=== PATIENT | female | born 1950 | race Caucasian/White ===

== ENCOUNTER 2022-04-27 13:16 | Inpatient (IN) | payer MEDICARE, OTHER, SELFPAY ==
[2022-04-27] VITALS (22 sets, daily range): BP systolic 94–144; BP diastolic 56–96; PULSE 34–161; RESP 14–24; TEMP 36.2–36.9; O2SAT 91–100; BMI 38.0
--- NOTE | 2022-04-27 13:34 | ECG_ITS ---
[facility] Test Date: 2022-04-27 Pat Name: Sanam Smith Department: Room: Gender: Female Technical Support Manager: : 1950 Requested By: Adebayo Sebastian Order Number: [id number] Joshua MD: Bentley Gonzales M.D. Measurements Intervals [place] Rate: 171 P: [place]: QRS: 62 QRSD: 95 T: -78 QT: 253 QTc: 427 Interpretive Statements ATRIAL FIBRILLATION WITH RAPID VENTRICULAR RESPONSE POSSIBLE RIGHT VENTRICULAR CONDUCTION DELAY [RSR (QR) IN V1/V2] ST DEVIATION AND MODERATE T-WAVE ABNORMALITY, CONSIDER LATERAL ISCHEMIA [-0.1+ mV T-WAVE IN I/aVL/V5/V6] ST DEVIATION AND MODERATE T-WAVE ABNORMALITY, CONSIDER INFERIOR ISCHEMIA [-0.1+ mV T-WAVE IN II/aVF] CRITICAL TEST RESULT No previous ECG available for comparison Electronically Signed On 04-27-2022 21:13:39 CDT by Bentley Gonzales M.D. [id number]
--- NOTE | 2022-04-27 13:45 | ECG_ITS ---
[facility] Test Date: 2022-04-27 Pat Name: Sanam Smith Department: Room: Gender: Female Stack Clerk: : 1950 Requested By: Tato Klein Order Number: [id number] Joshua MD: Bentley Gonzales M.D. Measurements Intervals [place] Rate: 160 P: [place]: QRS: 68 QRSD: 97 T: -35 QT: 262 QTc: 427 Interpretive Statements ATRIAL FIBRILLATION WITH RAPID VENTRICULAR RESPONSE POSSIBLE RIGHT VENTRICULAR CONDUCTION DELAY [RSR (QR) IN V1/V2] NONSPECIFIC ST & T-WAVE ABNORMALITY CRITICAL TEST RESULT Compared to ECG 04/27/2022 13:34:29 Possible ischemia no longer present T-wave abnormality still present Electronically Signed On 04-27-2022 21:13:46 CDT by Bentley Gonzales M.D. [id number]
[2022-04-27] MEDS: esmolol drip 2,500 MG/250 ML PREMIX 17.55 MG IV (13:59)
[2022-04-27 14:18] LABS: Basophils % 0.6 %; Eosinophils # 0.1 10^3/uL (0.0-0.8); Eosinophils % 1.3 %; Hematocrit 48.2 % (37.0-47.0); Hemoglobin 15.2 g/dL (11.5-15.3); Lymphocytes # 1.7 10^3/uL (0.8-4.8); Lymphocytes % 32.4 %; Mean Corpuscular HGB Conc 31.5 g/dL (30.0-36.0); Mean Corpuscular Hemoglobin 26.4 pg (28.0-34.0); Mean Corpuscular Volume 83.7 fl (81-99); Mean Platelet Volume 10.2 fL (7.4-10.4); Monocytes # 0.6 10^3/uL (0.2-0.9); Monocytes % 11.3 %; Neutrophils # 2.83 10^3/uL (1.8-7.7); Neutrophils % 54.2 %; Nucleated Red Blood Cells % 0 %; Platelet Count 247 10^3/cmm (130-400); Red Blood Count 5.76 10^6/uL (4.1-5.3); Red Cell Distribution Width 14.4 % (12.1-15.1); White Blood Count 5.2 10^3/uL (4.0-10.0)
[2022-04-27 14:44] LABS: Troponin(5th) Baseline 13 ng/L (0-10)
[2022-04-27 14:52] LABS: Anion Gap 15.3 (5-19); Blood Urea Nitrogen 9 mg/dL (8-23); Calcium 9.6 mg/dL (8.5-10.5); Carbon Dioxide 28 mmol/L (22-29); Chloride 102 mmol/L (98-107); Glomerular Filtration Rate 62.1 mL/min (90-130); Glucose 95 mg/dL (65-115); Magnesium 1.9 mg/dL (1.7-2.3); Osmolality Calculated 290 mOsm/kg (285-295); Potassium 4.3 mmol/L (3.5-5.1); Sodium 141 mmol/L (136-145); Thyroid Stimulating Hormone 2.57 uIU/mL (0.27-4.20)
--- NOTE | 2022-04-27 15:24 | P.HP_ITS ---
Providers/Chief Complaint Primary Care Provider: Jd Boothe Chief Complaint: Irregular heartbeat History of Present Illness Sanam Smith is a 71 year old female who presented to hospital chief complaint of skipping heartbeat. Patient is stating that 20 years ago she had an angiogram when she was diagnosed with palpitations. She does not take any medications at home. She has been enjoying a healthy life. Today she presented because of her complaint of skipping heartbeat. I did try to clarify what she means with skipping heartbeat seem like she has been having palpitations which she describing as skipping of her heartbeat. She has not experienced any shortness of breath, chest pain however endorsing fatigue and lethargy and lack of energy. No recent COVID-19 related symptoms. No recent traveling. She does not carry history of CHF, [place], diabetes. In the ER she was diagnosed with A. fib RVR heart rate in 145 range, he was started on esmolol drip while I was interviewing her her rhythm converted to sinus and heart rate dropped to low 30s, I turned off her drip right away, I would like to watch her on telemetry of any AV diallo blocking agent, her [id number] is only 2 Patient does not want to try any anticoagulating agent Medications/Allergies Home Medications Medication Instructions Recorded Confirmed Last Taken Type ascorbic acid 1,000 1 ea PO DAILY 04/27/22 04/27/22 Unknown History [id number] powder effervescent pack (Emergen-C) cholecalciferol (vitamin D3) 25 25 mcg PO DAILY PRN UNKNOWN 04/27/22 04/27/22 Unknown History mcg (1,000 unit) tablet (Vitamin D3) elderberry fruit 200 mg capsule 200 mg PO DAILY PRN UNKNOWN 04/27/22 04/27/22 Unknown History garlic 1 tab PO DAILY PRN UNKNOWN 04/27/22 04/27/22 Unknown History oxazepam 15 mg capsule 15 mg PO DAILY PRN Anxiety 04/27/22 04/27/22 04/26/22 History zinc 50 mg tablet 50 mg PO DAILY PRN UNKNOWN 04/27/22 04/27/22 Unknown History Allergies Allergy/AdvReac Type Severity Reaction Status Date / Time loratadine [From Claritin] Allergy Unknown Verified 04/27/22 14:44 pseudoephedrine Allergy ADR-Numbnes Verified 04/27/22 14:44 [From Mat] s ALL ALLERGY MEDS Allergy Unknown Uncoded 04/27/22 14:44 PFSH Acute PFSH: Medical History (Updated 04/27/22 @ 16:32 by Pancho Redd MD) No pertinent past medical history Surgical History (Updated 04/27/22 @ 16:32 by Pancho Redd MD) No pertinent past surgical history Vitals/I&O/Wt Last Vital Signs Temp 98.4 F 04/27/22 13:26 Pulse 145 H 04/27/22 13:26 Resp 20 H 04/27/22 13:26 Pulse Ox 97 04/27/22 13:26 O2 Del Method 04/27/22 13:26 Weight last 48 hrs Weight 97.522 kg Physical Exam Narrative: Very pleasant cooperative Sinus rhythm Heart rate fluctuate between 40 to 50s Sinus rhythm No active chest pain S1, S2 No audible stridor or wheezing Abdomen soft Looks euvolemic Nonfocal neuro exam Family is at the bedside Data : 04/27/22 14:06 04/27/22 14:06 A&P Assessment and plan (1) Atrial fibrillation with RVR: Status: Acute Plan New onset A. fib RVR She is on esmolol drip Rhythm converted to sinus now she is in bradycardic range, hold AV diallo blocking agent, esmolol drip has been turned off by myself in the ER Bharat Vascor is only 2 she did not qualify for anticoagulating agent, Check TSH Check magnesium level Cardiac monitoring on telemetry Will request echo Check magnesium level Check D-dimer Full code Cardiac diet DVT prophylaxis sufficed with Lovenox Attestations Medical Necessity Statement*: Currently on esmolol drip anticipating less than than 2 midnights in the hospital for management of new onset A. fib RVR Time Spent in Patient Care: 40 Coding Level of Care Code Acute Assistant Director Of Residence Life for Kenyatta Fwd Diagnoses Atrial fibrillation with RVR I48.91
--- NOTE | 2022-04-27 15:29 | ED_ITS ---
HPI - Chest Pain General: Chief Complaint: Chest Pain Stated Complaint: Irregular heartbeat Time Seen by Provider: 04/27/22 13:45 Source: patient Mode of arrival: ambulatory Limitations: no limitations History of Present Illness: 71-year-old female history of coronary disease presents emergency room with complaints of heart racing and palpitations. She has had this evidently for the last several days she presented to local primary care clinic and she was referred over to the ER where they noted her heart rate was in the 150s and irregular. She states she has no known history of atrial fibrillation she is not on any anticoagulants. She is not on any medications to lower heart rate. Her only prescription medication at this time is oxazepam. She denies any chest pain at this time. MD complaint: other (Palpitations) Onset (ago): day(s) (2) Timing of current episode: episodic Pain radiation: none Relieving factors: rest Exacerbating factors: movement (Going from sitting to standing) Associated symptoms: Reports palpitations; Deny abdominal pain, diaphoresis, dyspnea, fever(s), leg edema, nausea, sense of impending doom, syncope or vomiting Treatment prior to arrival: none Review of Systems Const: Denies: fever(s), chills, fatigue, malaise or diaphoresis ENMT: Denies: throat pain, ear or mastoid pain, nasal discharge or nasal congestion Card: Reports: palpitations; Denies: chest pain or syncope Resp: Denies: dyspnea GI: Denies: abdominal pain, nausea or vomiting : Denies: flank pain, difficulty voiding, dysuria, urinary frequency or urinary urgency Musc: Denies: neck pain or back pain Skin/Breast: Denies: rash or pruritus PFSH ED PFSH: Medical History Anxiety Atrial fibrillation with RVR No pertinent past medical history Tachycardia-bradycardia syndrome Surgical History No pertinent past surgical history Physical Exam Const: COMMON NORMALS: no acute distress GENERAL APPEARANCE: cooperative and comfortable ORIENTATION/CONSCIOUSNESS: Yes awake, Yes oriented to person, Yes oriented to place and Yes oriented to time HENMT: COMMON NORMALS: normocephalic, atraumatic and hearing grossly normal bilaterally HEAD & SCALP: normocephalic and atraumatic Resp: COMMON NORMALS: normal respiratory effort, No retractions, No use of accessory muscles and clear to auscultation bilaterally AUSCULTATION: clear to auscultation bilaterally Cardio: RATE: tachycardic RHYTHM: abnormal rhythm irregularly irregular GI: COMMON NORMALS: Soft to palpation and No hepatosplenomegaly present AUSCULTATION: Yes normoactive bowel sounds PALPATION: Yes Soft to palpation, No Tenderness to palpation present (GI), No Guarding due to palpation present (GI) and Yes No hepatosplenomegaly present Extremity: COMMON NORMALS: normal to inspection, capillary refill normal, no clubbing, cyanosis or edema, no calf tenderness and no pedal edema Neuro: SENSORIUM/ORIENTATION: Yes oriented to person, Yes oriented to place an d Yes oriented to time Skin: COMMON NORMALS: no rashes or lesions noted GENERAL SKIN EXAM: no rashes or lesions noted Course Vital Signs: Vital signs: Vital Signs Temperature 97.6 F 05/02/22 12:44 Pulse Rate 72 05/02/22 12:45 Respiratory Rate 14 05/02/22 12:45 Blood Pressure 120/74 05/02/22 13:00 Pulse Oximetry 98 05/02/22 12:45 Oxygen Delivery Me thod 05/02/22 08:30 Oxygen Flow Rate 2 04/30/22 13:25 MDM - Chest Pain Medical Decision Making A. fib with RVR. Patient started on esmolol and then she converted. When the hospitalist came to see her the esmolol drip was stopped. We will go ahead and admit her she became bradycardic they will continue to monitor for time make adjustments to medications and consider anticoagulation. Medical Records I reviewed the patient's medical records. Lab Data I reviewed the patient's lab results. : 05/01/22 05:00 05/01/22 05:00 Laboratory Results WBC 7.1 10^3/uL (4.0-10.0) 04/28/22 03:07 RBC 5.20 10^6/uL (4.1-5.3) 04/28/22 03:07 Hgb 13.8 g/dL (11.5-15.3) 04/28/22 03:07 Hct 43.7 % (37.0-47.0) 04/28/22 03:07 MCV 84.0 fl (81-99) 04/28/22 03:07 MCH 26.5 pg (28.0-34.0) L 04/28/22 03:07 MCHC 31.6 g/dL (30.0-36.0) 04/28/22 03:07 RDW 14.5 % (12.1-15.1) 04/28/22 03:07 Plt Count 259 10^3/cmm (130-400) 04/28/22 03:07 MPV 10.9 fL (7.4-10.4) H 04/28/22 03:07 Neut % (Auto) 62.4 % 04/28/22 03:07 Lymph % (Auto) 23.1 % 04/28/22 03:07 Richardson % (Auto) 12.1 % 04/28/22 03:07 Eos % (Auto) 1.8 % 04/28/22 03:07 Baso % (Auto) 0.3 % 04/28/22 03:07 Neut # (Auto) 4.45 10^3/uL (1.8-7.7) 04/28/22 03:07 Lymph # (Auto) 1.7 10^3/uL (0.8-4.8) 04/28/22 03:07 Richardson # (Auto) 0.9 10^3/uL (0.2-0.9) 04/28/22 03:07 Eos # (Auto) 0.1 10^3/uL (0.0-0.8) 04/28/22 03:07 Baso # (Auto) 0.0 10^3/uL (0.0-0.1) 04/28/22 03:07 Nucleated RBC % (auto) 0 % 04/28/22 03:07 Nucleated RBCs # 0.0 /100WBC 04/28/22 03:07 D-Dimer 0.66 ug/mIFEU (0-0.59) H 04/27/22 15:27 Sodium 138 mmol/L (136-145) 04/28/22 03:07 Potassium 4.1 mmol/L (3.5-5.1) 04/28/22 03:07 Chloride 105 mmol/L (98-107) 04/28/22 03:07 Carbon Dioxide 24 mmol/L (22-29) 04/28/22 03:07 Anion Gap 13.1 (5-19) 04/28/22 03:07 BUN 10 mg/dL (8-23) 04/28/22 03:07 Creatinine 0.8 mg/dL (0.5-0.9) 04/28/22 03:07 GFR Calculation 71.1 mL/min (90-130) L 04/28/22 03:07 Glucose 100 mg/dL (65-115) 04/28/22 03:07 Estimat Average Glucose 117 04/27/22 14:06 Hemoglobin A1c 5.7 % (4.0-6.0) 04/27/22 14:06 Calculated Osmolality 285 mOsm/kg (285-295) 04/28/22 03:07 Calcium 8.6 mg/dL (8.5-10.5) 04/28/22 03:07 Phosphorus 4.0 mg/dL (2.5-4.5) 04/28/22 03:07 Phosphorus Cancelled 04/28/22 03:07 Magnesium 2.1 mg/dL (1.7-2.3) 04/28/22 03:07 Magnesium Cancelled 04/28/22 03:07 Troponin T Baseline 13 ng/L (0-10) H 04/27/22 14:06 Troponin T 120 Minute 10.38 ng/L (0-10) H 04/27/22 16:42 Delta Troponin T -2.62 ABS# (0-10) L 04/27/22 16:42 Troponin T Hi Sens 6Hr 10.55 ng/L (0-10) H 04/27/22 20:44 Troponin T Hi Sens 6Hr Delta -2.45 ng/L (0-12) L 04/27/22 20:44 C-Reactive Protein 3.0 mg/L (0.0-4.9) 04/28/22 03:07 C-Reactive Protein Cancelled 04/28/22 03:07 TSH 2.57 uIU/mL (0.27-4.20) 04/27/22 14:06 Discharge Plan Discharge Patient Disposition: Admitted As Inpatient Admit Provider: Pancho Redd Clinical Impression: Atrial fibrillation with rapid ventricular response Condition: Stable Discharge Diet: Cardiac Discharge Activity: Increase activity as tolerated Coding Level of Care Code ED Water Meter Mechanic for Chg Fwd
[2022-04-27 15:43] LABS: D Dimer 0.66 ug/mIFEU (0-0.59)
--- NOTE | 2022-04-27 15:45 | ECG_ITS ---
[facility] Test Date: 2022-04-27 Pat Name: Sanam Smith Department: Room: Gender: Female Food And Beverage Outlets Manager: : 1950 Requested By: Tato Klein Order Number: [id number] Joshua MD: Bentley Gonzales M.D. Measurements Intervals [place] Rate: 62 P: 53 [place]: 128 QRS: 69 QRSD: 94 T: 42 QT: 426 QTc: 434 Interpretive Statements SINUS RHYTHM WITH MARKED SINUS ARRHYTHMIA LOW QRS VOLTAGE IN PRECORDIAL LEADS [QRS DEFLECTION < 1.0 mV IN CHEST LEADS] POSSIBLE RIGHT VENTRICULAR CONDUCTION DELAY [RSR (QR) IN V1/V2] Compared to ECG 04/27/2022 14:08:27 Low QRS voltage now present Atrial fibrillation no longer present T-wave abnormality no longer present Electronically Signed On 04-28-2022 6:46:54 CDT by Bentley Gonzales M.D. [id number]
[2022-04-27 17:14] LABS: Troponin 5 2HR 10.38 ng/L (0-10)
[2022-04-27 17:16] LABS: Troponin 5 2HR Delta -2.62 ABS# (0-10)
[2022-04-27 17:32] LABS: Estmated Average Glucose 117; Hemoglobin A1C 5.7 % (4.0-6.0)
--- NOTE | 2022-04-27 18:08 | PC.NURSE ---
Admitted to ICU at 1730 via bed on room air. A&Ox4. Pt's heart rate was in the 40's and esmolol drip was shut off. All belongings in room including ring, glasses, shoes, shirt and pants.
--- NOTE | 2022-04-27 18:45 | PC.NURSE ---
This nurse was notified that pt was in afib with a HR in 150's. EKG already done. Dr. Redd was notified and placed new orders.
--- NOTE | 2022-04-27 19:45 | ECG_ITS ---
[facility] Test Date: 2022-04-27 Pat Name: Sanam Smith Department: Room: [facility] Gender: Female Creel Selector: : 1950 Requested By: Tato Klein Order Number: [id number] Lewis MD: Saumya Riley M.D. Measurements Intervals [place] Rate: 128 P: [place]: QRS: 54 QRSD: 101 T: -84 QT: 304 QTc: 444 Interpretive Statements ATRIAL FIBRILLATION WITH RAPID VENTRICULAR RESPONSE INCOMPLETE RIGHT BUNDLE BRANCH BLOCK [90+ ms QRS DURATION, TERMINAL R IN V1/V2, 40+ ms S IN I/aVL/V4/V5/V6] NONSPECIFIC ST & T-WAVE ABNORMALITY Compared to ECG 04/27/2022 15:57:34 Incomplete right bundle-branch block now present T-wave abnormality now present Sinus rhythm no longer present Sinus arrhythmia no longer present Electronically Signed On 04-28-2022 19:51:45 CDT by Saumya Riley M.D. [id number]
[2022-04-27] MEDS: metoprolol tartrate 25 mg Tablet PO (20:46)
[2022-04-27 21:39] LABS: Troponin 5 6HR 10.55 ng/L (0-10); Troponin 5 6HR Delta -2.45 ng/L (0-12)
--- NOTE | 2022-04-27 22:41 | PC.NURSE ---
Pt had an approximately 3.8 second pause at 2205. She converted into sinus bradycardia with PAC's. Pt was asymptomatic with pause, stating, I feel really different.
[2022-04-28] VITALS (137 sets, daily range): BP systolic 88–140; BP diastolic 55–93; PULSE 34–152; RESP 9–28; TEMP 36.4–36.6; O2SAT 94–100
[2022-04-28] MEDS: metoprolol tartrate 1 mg/1 mL SDV 5 mL 5 MG IVP (01:24)
[2022-04-28] MEDS: ALPRAZolam 0.5 mg Tablet PO (01:38)
--- NOTE | 2022-04-28 02:06 | PC.NURSE ---
Pt continues to complain of anxiety, but is cheerful and laughing. is at bedside reading to her.
--- NOTE | 2022-04-28 02:57 | PC.NURSE ---
Pt resting quietly in bed with eyes closed. Respirations are even and unlabored. Skin is pink and dry. Pt's at bedside.
[2022-04-28 04:10] LABS: Basophils % 0.3 %; Eosinophils # 0.1 10^3/uL (0.0-0.8); Eosinophils % 1.8 %; Hematocrit 43.7 % (37.0-47.0); Hemoglobin 13.8 g/dL (11.5-15.3); Lymphocytes # 1.7 10^3/uL (0.8-4.8); Lymphocytes % 23.1 %; Mean Corpuscular HGB Conc 31.6 g/dL (30.0-36.0); Mean Corpuscular Hemoglobin 26.5 pg (28.0-34.0); Mean Platelet Volume 10.9 fL (7.4-10.4); Monocytes # 0.9 10^3/uL (0.2-0.9); Monocytes % 12.1 %; Neutrophils # 4.45 10^3/uL (1.8-7.7); Neutrophils % 62.4 %; Nucleated Red Blood Cells % 0 %; Platelet Count 259 10^3/cmm (130-400); Red Cell Distribution Width 14.5 % (12.1-15.1); White Blood Count 7.1 10^3/uL (4.0-10.0)
--- NOTE | 2022-04-28 04:23 | PC.NURSE ---
Pt complains of numbness of right hand following ABG.
[2022-04-28 04:53] LABS: Anion Gap 13.1 (5-19); Blood Urea Nitrogen 10 mg/dL (8-23); Calcium 8.6 mg/dL (8.5-10.5); Carbon Dioxide 24 mmol/L (22-29); Chloride 105 mmol/L (98-107); Creatinine Clr Calc Pharmacy 73.8122; Glomerular Filtration Rate 71.1 mL/min (90-130); Glucose 100 mg/dL (65-115); Magnesium 2.1 mg/dL (1.7-2.3); Osmolality Calculated 285 mOsm/kg (285-295); Potassium 4.1 mmol/L (3.5-5.1); Sodium 138 mmol/L (136-145)
--- NOTE | 2022-04-28 09:00 | USCV_ITS ---
Sanam Smith Age: 71 Gender: F : 1950 Exam Date: 04/28/2022 09:39 Ordering Phys: Pancho Redd MD Technologist: GUERO Exam Location: [facility] [place] Indication: NEW ONSET AFIB BP: 110 / 73 HR: 77 Rhythm: Sinus Technical Quality: Adequate MEASUREMENTS (Male / Female) Normal Values 2D ECHO LV Diastolic Diameter PLAX 4.6 cm 4.2 - 5.9 / 3.9 - 5.3 cm LV Systolic Diameter PLAX 3.6 cm IVS Diastolic Thickness 1.4 cm 0.6 - 1.0 / 0.6 - 0.9 cm IVS Systolic Thickness 1.5 cm LVPW Diastolic Thickness 1.1 cm 0.6 - 1.0 / 0.6 - 0.9 cm LVPW Systolic Thickness 1.2 cm LVOT Diameter 2.0 cm LV Ejection Fraction 2D Teich 42.1 % LV Ejection Fraction MOD 2C 74.1 % LV Ejection Fraction 2C AL 75.2 % LA Diameter 4.0 cm LA Width 3.1 cm LA Height 5.7 cm RA Width 3.2 cm RA Height 4.8 cm Aorta at Sinotubular Diameter 2.6 cm IVC Diameter 1.1 cm M-MODE Aortic Annulus Diameter 3.0 cm LA Ao Ratio MM 1.3 MV E Point Septal Separation 0.4 cm DOPPLER AV Peak Velocity 126.0 cm/s LVOT Peak Velocity 100.0 cm/s AV Area Cont Eq vti 2.1 cm squared AV Area Cont Eq pk 2.5 cm squared MV Peak Velocity 105.0 cm/s MV Area PHT 3.5 cm squared MV E' Velocity 57.5 cm/s Mitral E to MV E' Ratio 9.4 Mitral E to LV E' Lateral Ratio 7.9 Mitral E to LV E' Septal Ratio 11.7 TR Peak Velocity 299.5 cm/s TR Peak Gradient 35.9 mmHg TR Mean Velocity 222.1 cm/s TR Mean Gradient 22.5 mmHg TR Velocity Time Integral 89.8 cm TV Peak E Velocity 52.0 cm/s Right Atrial Pressure 3.0 mmHg Pulmonary Artery Systolic Pressu 38.9 mmHg PV Peak Velocity 83.0 cm/s RV Acceleration Time 0.1 s RV Ejection Time 0.3 s RV AcT/ET 0.3 FINDINGS Left Ventricle Normal left ventricular size, systolic function and wall thickness, with no regional wall motion abnormalities. Left ventricular ejection fraction is estimated at 65 %. Grade II/IV diastolic dysfunction, moderately elevated filling pressures. Right Ventricle Normal right ventricular size and systolic function. Mild pulmonary hypertension, RVSP 38.9 mmHg. Right Atrium The right atrium is normal in size. Left Atrium Moderately increased left atrial size. Mitral Valve Structurally normal mitral valve. No mitral valve stenosis. Mild mitral valve regurgitation. Aortic Valve Structurally normal aortic valve without significant sclerosis or stenosis. There is no aortic regurgitation. Tricuspid Valve Structurally normal tricuspid valve. Mild tricuspid valve regurgitation. Pulmonic Valve Pulmonic valve not well visualized. Pericardium Normal pericardium without effusion. Aorta Normal ascending aorta dimension. IVC The inferior vena cava pulmonary and hepatic veins appear normal. CONCLUSIONS Normal left ventricular size, systolic function and wall thickness, with no regional wall motion abnormalities. Left ventricular ejection fraction is estimated at 65 %. Grade II/IV diastolic dysfunction, moderately elevated filling pressures. Normal right ventricular size and systolic function. Mild pulmonary hypertension, RVSP 38.9 mmHg. Moderately increased left atrial size. Structurally normal mitral valve. No mitral valve stenosis. Mild mitral valve regurgitation. Normal right ventricular size and systolic function. Mild pulmonary hypertension, RVSP 38.[address] Demarcus Urbina MD (Electronically Signed) Final Date: 28 April 2022 10:39 S
[2022-04-28] MEDS: sennosides-docusate Tablet 1 TAB PO (09:13)
[2022-04-28] MEDS: metoprolol tartrate 25 mg Tablet PO (09:14)
[2022-04-28] MEDS: aspirin 325 mg EC Tablet PO (09:14)
[2022-04-28] MEDS: magnesium oxide 400 mg tablet PO ×2 (09:14→17:28)
[2022-04-28] MEDS: enoxaparin 40 mg/0.4 mL Syringe SUBCUT (09:15)
--- NOTE | 2022-04-28 09:29 | PC.NURSE ---
Oxazepam, home medication, brought in by patients daughter. Medication counted with gilbert Vazquez. 73 pills in bottle.
--- NOTE | 2022-04-28 09:34 | PC.NURSE ---
Oxazepam placed into patients medication bin. Patient and family notified of location and count.
--- NOTE | 2022-04-28 10:11 | PC.CHAP ---
Pastoral Care Encounter/Spiritual Assessment Type of Contact [] Declined civil design specialist visit [] Patient/Family/Request visit [] Outpatient visit [] Follow-up visit [] Physician referral [] Code/Alert [x] Routine visit [] Staff referral [] Actively dying [] Patient sleeping [x] Family support [] [] Out of room [] Palliative care [] [] Receiving care in room [] Pre-surgical visit [] Trauma [] Long length of stay [x] ICU visit [] Other: Relational/Emotional Strength [] Patient feels connected with others/family/visitors/staff [] Distress [] Loneliness/isolation [] Abandonment Spirituality of Patient [] Person of Jenniffer [] Attends Pentecostal of their Jenniffer [] Believes in Prayer [] Reads Bible or Mosque materials [] There are Spiritual issues to be addressed Guest Relations Representative Interventions [x] Prayer [x] Active listening [x] Non-anxious presence [x] Spiritual/emotional support [] Crisis/trauma care [] Spiritual counseling [] Bereavement support [] Provided bereavement packet [] Provided Bible/devotional materials [] Provided toy/stuffed animal, coloring book to patient or family member [] Provided Communion [] Anointing/[place] [] Salvation [x] Completed spiritual assessment [] Other: Impact on Illness or Injury [] Angry [] Fearful [] Anxious [] Often cries [] Exhaustion [] Unable to work [] Unable to attend anglican [] Unable to walk/stand [] Unable to read [] Unable to drive [] Unable to eat/drink [] Unable to sleep [] Unable to be with family [] Patient intubated [] Other: Summary feeling better waiting on heart doctor..... Time spent with patient
--- NOTE | 2022-04-28 10:12 | P.CONIM_ITS ---
Providers/Reason For Consult Consulting Physician/Specialty*: Cardiovascular medicine Reason for Consult*: Tachybradycardia syndrome with atrial fibrillation Requesting Physician: Hospitalist Attending Physician: Pancho Redd MD Primary Care Provider: Jd Boothe History of Present Illness History of Present Illness Sanam Smith is a 71 year old female with no known history of cardiac arrhythmias. For 3 days prior to admission she noticed flip-flopping of the heart and an irregular heartbeat and also occasional rapid heartbeats. In the emergency room she was in atrial fibrillation with a rapid ventricular response. She was started on an esmolol drip and had rather profound bradycardia. She went back to sinus rhythm and a heart rate in the low 30s. The esmolol was discontinued. She was placed in the hospital and had another episode of atrial fibrillation. She was given 5 mg of metoprolol IV and 150 mg of amiodarone. Subsequently she went back into sinus rhythm but also had bradycardia down in the 30s and occasional junctional rhythm. Now she is being maintained on metoprolol tartrate 25 mg p.o. twice daily. While I was in talking to her she was in sinus rhythm but did have several short episodes of a junctional rhythm. She is asymptomatic at this point. She has no prior history of this and no prior history of other heart disease. Review of Systems Narrative: Review of systems is negative Medications/Allergies Home Medications Medication Instructions Recorded Confirmed Last Taken Type ascorbic acid 1,000 1 ea PO DAILY 04/27/22 04/27/22 Unknown History [id number] powder effervescent pack (Emergen-C) cholecalciferol (vitamin D3) 25 25 mcg PO DAILY PRN UNKNOWN 04/27/22 04/27/22 Unknown History mcg (1,000 unit) tablet (Vitamin D3) elderberry fruit 200 mg capsule 200 mg PO DAILY PRN UNKNOWN 04/27/22 04/27/22 Unknown History garlic 1 tab PO DAILY PRN UNKNOWN 04/27/22 04/27/22 Unknown History oxazepam 15 mg capsule 15 mg PO DAILY PRN Anxiety 04/27/22 04/27/22 04/26/22 Hi story zinc 50 mg tablet 50 mg PO DAILY PRN UNKNOWN 04/27/22 04/27/22 Unknown History Allergies Allergy/AdvReac Type Severity Reaction Status Date / Time loratadine [From Claritin] Allergy Unknown Verified 04/27/22 14:44 pseudoephedrine Allergy ADR-Numbnes Verified 04/27/22 14:44 [From Sudafed] s ALL ALLERGY MEDS Allergy Unknown Uncoded 04/27/22 14:44 Current Medications Generic Name Dose Route Start Last Admin Trade Name Elizabeth PRN Reason Stop Dose Admin Aspirin 325 mg 04/28/22 09:00 04/28/22 09:14 Aspirin 325 Mg Ec Tablet PO 325 mg DAILY JONA Administration Enoxaparin Sodium 40 mg 04/28/22 09:00 04/28/22 09:15 Enoxaparin 40 Mg/0.4 Ml Syringe SUBCUT 40 mg DAILY JONA Administration Magnesium Oxide 400 mg 04/28/22 09:00 04/28/22 09:14 Magnesium Oxide 400 Mg Tablet PO 400 mg BID JONA Administration Senna/Docusate Sodium 1 tab 04/28/22 09:00 04/28/22 09:13 Sennosides-Docusate Tablet PO 1 tab DAILY JONA Administration PFSH Acute PFSH: Medical History (Updated 04/28/22 @ 10:16 by Demarcus Urbina MD) No pertinent past medical history Tachycardia-bradycardia syndrome Surgical History (Updated 04/27/22 @ 16:32 by Pancho Redd MD) No pertinent past surgical history Vitals/I&O/Wt Last Vital Signs Temp 97.9 F 04/28/22 07:22 Pulse 79 04/28/22 09:15 Resp 18 04/28/22 09:15 BP 119/73 04/28/22 09:20 Pulse Ox 98 04/28/22 09:15 O2 Del Method 04/28/22 07:22 O2 Flow Rate 2 04/28/22 05:30 04/27/22 04/28/22 04/28/22 22:59 06:59 14:59 Intake Total 957.667 / 957.667 480 / 1437.667 Output Total 1100 / 1100 400 / 1500 Balance -142.333 / -142.333 80 / -62.333 Weight last 48 hrs Weight 215 lb Physical Exam Narrative: GENERAL: In general she feels well and looks well at rest HEENT: Exam within normal limits. NECK: Supple without jugular vein distention. The carotid upstroke is normal without bruits. BACK: Exam normal. LUNGS: Clear. HEART: Regular rate and rhythm. ABDOMEN: Benign without organomegaly or tenderness. EXTREMITIES: No edema. NEUROLOGIC: Exam normal. SKIN: Unremarkable. Data : 04/28/22 03:07 04/28/22 03:07 Other data: Her labs are essentially normal. Her troponin is 13, 10.3 and 10.55. EKGs reveal atrial fibrillation with a rapid ventricular response and then sinus arrhythmia. A&P Assessment and plan (1) Atrial fibrillation with RVR: Status: Acute (2) Tachycardia-bradycardia syndrome: Status: Acute Plan We will try a couple of things to get her in sinus rhythm, keep her there and not cause bradycardia. My guess however, is that she will need a pacemaker and then we can treat her with what ever medicines are necessary. I will start out by decreasing the metoprolol to 12.5 mg twice a day since she is still having some occasional junctional rhythm and adding propafenone 150 mg 3 times daily. I explained this to her, her and their youngest daughter. She may go out of the ICU to a monitored bed. Consult Attestations Medical Necessity Statement: Treatment of atrial fibrillation and tachybradyc ardia syndrome. 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
--- NOTE | 2022-04-28 11:56 | PM.PN ---
Subjective Subjective: Patient has been having tachybradycardia syndrome, concern for sick sinus syndrome I consulted Dr. Urbina for pacemaker evaluation Patient is stating that she has requested her daughter to bring her anxiolytics she was not able to sleep last night because of her anxiety Vitals/I&O/Wt Last Vital Signs Temp 97.9 F 04/28/22 07:22 Pulse 36 L 04/28/22 11:05 Resp 16 04/28/22 11:05 BP 103/63 04/28/22 11:05 Pulse Ox 98 04/28/22 09:15 O2 Del Method 04/28/22 07:22 O2 Flow Rate 2 04/28/22 05:30 04/27/22 04/28/22 04/28/22 22:59 06:59 14:59 Intake Total 957.667 / 957.667 480 / 1437.667 440 / 440 Output Total 1100 / 1100 400 / 1500 Balance -142.333 / -142.333 80 / -62.333 440 / 440 Weight last 48 hrs Weight 97.522 kg Physical Exam Narrative: Currently heart rate is in low 40s Blood pressure is stable No active chest pain or shortness of breath Patient is endorsing fatigue and lethargy Nonfocal neuro exam Abdomen soft Saturating well on room air Data : 04/28/22 03:07 04/28/22 03:07 A&P Assessment and plan (1) Tachycardia-bradycardia syndrome: Status: Acute (2) Atrial fibrillation with RVR: Status: Acute Plan Sick sinus syndrome Dr. Urbina has recommended propafenone and low-dose of metoprolol In case of any further events consider notifying cardiology, she might need a pacemaker She can be monitored on cardiac stepdown on telemetry She can be transferred out of ICU Echo showed grade 2 diastolic function EF 65% moderately increased left atrial size Potassium 4.1 Recent 2.1 Troponin trending down TSH 2.5 I will change her to inpatient Patient can have cardiac diet I will keep her n.p.o. for tomorrow in case she would need any pacemaker Continue aspirin high-dose [id number] score is 2 Patient is full code DVT prophylaxis Lovenox Attestations Medical Necessity Statement*: Anticipating more than 2 midnights in the hospital Time Spent in Patient Care: 40 Coding Level of Care Code Acute Vending Mechanic for Chg Fwd Diagnoses Tachycardia-bradycardia syndrome I49.5 Atrial fibrillation with RVR I48.91
[2022-04-28] MEDS: propafenone 150 mg Tablet PO ×2 (14:50→20:14)
--- NOTE | 2022-04-28 15:27 | PC.NURSE ---
Patient has ambulated several times to restroom without dizziness or syncope. New medication propafenone admin @1500. Patient instructions given in regards to side effects. Monitoring heart rhythm closely for changes.
--- NOTE | 2022-04-28 18:39 | PC.NURSE ---
Patient will be monitored overnight to assess effectiveness of new heart medications on jazmin/junctional episodes. Patient will be NPO after midnight. Assess in AM by Dr. Flores for pace maker.
--- NOTE | 2022-04-28 19:26 | PC.NURSE ---
Beside report received from Monty Navarro RN
[2022-04-28] MEDS: metoprolol tartrate 25 mg Tablet 12.5 MG PO (20:14)
--- NOTE | 2022-04-28 21:44 | PC.NURSE ---
Pt experiencing refux. States that she takes Prilosec or Protonix at home. Pt given Sprite to sip on until new med orders from Dr. Villegas processed by pharmacy.
[2022-04-28] MEDS: pantoprazole 40 mg SDV IVP (21:53)
[2022-04-29] VITALS (51 sets, daily range): BP systolic 71–126; BP diastolic 40–80; PULSE 35–90; RESP 10–22; TEMP 35.4–37.1; O2SAT 88–100
--- NOTE | 2022-04-29 01:24 | PC.NURSE ---
Pt awakened due to low BP. New MAP 64.
[2022-04-29 04:09] LABS: Anion Gap 11.3 (5-19); Blood Urea Nitrogen 11 mg/dL (8-23); Calcium 8.7 mg/dL (8.5-10.5); Carbon Dioxide 28 mmol/L (22-29); Chloride 107 mmol/L (98-107); Glomerular Filtration Rate 62.1 mL/min (90-130); Glucose 93 mg/dL (65-115); Osmolality Calculated 293 mOsm/kg (285-295); Potassium 4.3 mmol/L (3.5-5.1); Sodium 142 mmol/L (136-145)
--- NOTE | 2022-04-29 07:35 | PM.PN ---
Subjective Subjective: Yesterday, I decreased her beta-josephine because she was still having some episodes of bradycardia. I started her on propafenone to try to alleviate the atrial fibrillation. She is still having episodes of bradycardia and on occasion hypotension. The propafenone has been successful in eliminating the atrial fibrillation for the most part. Vitals/I&O/Wt Last Vital Signs Temp 98.7 F 04/29/22 04:00 Pulse 65 04/29/22 07:00 Resp 18 04/29/22 07:00 BP 85/51 04/29/22 07:00 Pulse Ox 97 04/29/22 07:00 O2 Del Method 04/29/22 07:00 O2 Flow Rate 4 04/28/22 22:30 04/28/22 04/29/22 04/29/22 22:59 06:59 14:59 Intake Total 120 / 800 Balance 120 / 400 Weight last 48 hrs Weight 215 lb Physical Exam Narrative: GENERAL: In general she looks and feels well HEENT: Exam within normal limits. NECK: Supple without jugular vein distention. The carotid upstroke is normal without bruits. BACK: Exam normal. LUNGS: Clear. HEART: Regular rate and rhythm. ABDOMEN: Benign without organomegaly or tenderness. EXTREMITIES: No edema. NEUROLOGIC: Exam normal. SKIN: Unremarkable. Data : 04/28/22 03:07 04/29/22 03:32 A&P Assessment and plan (1) Tachycardia-bradycardia syndrome: Status: Acute (2) Atrial fibrillation with RVR: Status: Acute Plan I had a discussion with the patient and her today. They would like to do everything possible to avoid a pacemaker. I think she is probably going to need 1 however today we agreed that I would stop the beta-josephine and leave the propafenone in place. If she still has episodes of bradycardia she will need the pacemaker. In the long-term I would anticoagulate her. She may eat today. Attestations Medical Necessity Statement*: Management of tachybradycardia syndrome in the hospital. Coding Level of Care Code Established Pt Acute Director Of Restaurant Operations for Kenyatta Fwd Patient Type Established History Detailed Exam Detailed Medical Decision Making Moderate Complexity Diagnoses Tachycardia-bradycardia syndrome I49.5 Atrial fibrillation with RVR I48.91
--- NOTE | 2022-04-29 08:30 | ECG_ITS ---
[facility] Test Date: 2022-04-29 Pat Name: Sanam Smith Department: Room: [facility] Gender: Female Brusher Operator: : [id number] Requested By: Pancho Redd Order Number: [id number] Reading MD: Demarcus Urbina M.D. Measurements Intervals [place] Rate: 55 P: 43 MD: 118 QRS: 32 QRSD: 101 T: 4 QT: 441 QTc: 425 Interpretive Statements SINUS BRADYCARDIA WITH MARKED SINUS ARRHYTHMIA WITH SHORT MD INTERVAL LOW QRS VOLTAGE IN PRECORDIAL LEADS [QRS DEFLECTION < 1.0 mV IN CHEST LEADS] POSSIBLE RIGHT VENTRICULAR CONDUCTION DELAY [RSR (QR) IN V1/V2] Compared to ECG 04/27/2022 19:45:26 Short MD interval now present Low QRS voltage now present Atrial fibrillation no longer present Incomplete right bundle-branch block no longer present T-wave abnormality no longer present Electronically Signed On 04-29-2022 14:24:20 CDT by Demarcus Urbina M.D. [email or web address]
--- NOTE | 2022-04-29 10:02 | P.PN_ITS ---
Subjective Subjective: Bradycardic overnight with low blood pressure Dr. Urbina has discontinued metoprolol Continue propafenone for now Patient is agreeable for pacemaker placement tomorrow Currently no active chest pain She had last bowel movement yesterday, I did encourage patient to walk in her room and noticed if heart rate fluctuates At the time of my evaluation her MAP is 70 heart rate 66-70 Family is at the bedside Vitals/I&O/Wt Last Vital Signs Temp 95.8 F L 04/29/22 08:33 Pulse 66 04/29/22 09:01 Resp 18 04/29/22 09:01 BP 116/73 04/29/22 08:33 Pulse Ox 95 04/29/22 09:01 O2 Del Method 04/29/22 09:01 O2 Flow Rate 4 04/28/22 22:30 04/28/22 04/29/22 04/29/22 22:59 06:59 14:59 Intake Total 120 / 800 Balance 120 / 400 Weight last 48 hrs Weight 97.522 kg Physical Exam Narrative: Patient is awake and alert Euvolemic Abdomen soft S1, S2 sinus rhythm No murmur Nonfocal neuro exam Awake and alert Saturating well on room air Data : 04/28/22 03:07 04/29/22 03:32 A&P Assessment and plan (1) Tachycardia-bradycardia syndrome: Status: Acute (2) Atrial fibrillation with RVR: Status: Acute Plan Sick sinus syndrome Currently on propafenone Metoprolol discontinued Incomplete improved branch block No signs of coronary ischemia She might need a pacemaker by tomorrow We will keep her n.p.o. after midnight Monitor on propafenone for today Appreciate Dr. Urbina's recommendation Currently patient is hemodynamically stable Currently on room air Her [id number] score is 2, she is on high-dose aspirin along with DVT prophylaxis regimen I will hold Lovenox for tonight and keep her n.p.o. after midnight Her anxiety is better she was able to sleep, last bowel movement was yesterday Attestations Medical Necessity Statement*: Pacemaker tomorrow Time Spent in Patient Care: 40 Coding Level of Care Code Acute Barrel Drainer for Kenyatta Fwarnaldo Diagnoses Tachycardia-bradycardia syndrome I49.5 Atrial fibrillation with RVR I48.91
[2022-04-29] MEDS: magnesium oxide 400 mg tablet PO ×2 (10:23→17:12)
[2022-04-29] MEDS: aspirin 325 mg EC Tablet PO (10:23)
[2022-04-29] MEDS: sennosides-docusate Tablet 1 TAB PO (10:23)
[2022-04-29] MEDS: propafenone 150 mg Tablet PO ×3 (10:24→20:36)
[2022-04-30] VITALS (196 sets, daily range): BP systolic 91–134; BP diastolic 49–89; PULSE 38–89; RESP 10–43; TEMP 36.4–37.1; O2SAT 89–100
--- NOTE | 2022-04-30 06:37 | PM.PN ---
Subjective Subjective: Yesterday I stopped the beta-josephine because she was still having episodes of bradycardia and junctional rhythm. The propafenone is still in place. Overnight she has had no further junctional rhythm. She has been in sinus. No further atrial fibrillation other than a few very short bursts of just a few beats. This morning she is in sinus rhythm. Vitals/I&O/Wt Last Vital Signs Temp 97.5 F L 04/30/22 05:00 Pulse 63 04/30/22 06:15 Resp 14 04/30/22 06:15 BP 98/49 04/30/22 06:15 Pulse Ox 95 04/30/22 06:15 O2 Del Method 04/30/22 04:15 O2 Flow Rate 4 04/28/22 22:30 04/29/22 04/29/22 04/30/22 14:59 22:59 06:59 Intake Total 680 / 680 720 / 1400 240 / 1640 Output Total 500 / 500 Balance 680 / 680 220 / 900 240 / 1140 Weight last 48 hrs Weight 219 lb 8 oz Physical Exam Narrative: GENERAL: In general she is asleep this morning but feels well otherwise. HEENT: Exam within normal limits. NECK: Supple without jugular vein distention. The carotid upstroke is normal without bruits. BACK: Exam normal. LUNGS: Clear. HEART: Regular rate and rhythm. ABDOMEN: Benign without organomegaly or tenderness. EXTREMITIES: No edema. NEUROLOGIC: Exam normal. SKIN: Unremarkable. Data : 04/28/22 03:07 04/29/22 03:32 A&P Assessment and plan (1) Tachycardia-bradycardia syndrome: Status: Acute (2) Atrial fibrillation with RVR: Status: Acute Plan For now we seem to have eliminated the atrial fibrillation for the most part. She is no longer having bradycardia off all AV diallo blockers. For now I think we have avoided the need for a pacemaker. I would add a factor Xa inhibitor, discontinue the Lovenox, decrease the aspirin dose to 81 mg a day and get her up and around. If she does okay she can be discharged later today or at the latest tomorrow. Attestations Medical Necessity Statement*: Management of tachybradycardia syndrome with atrial fibrillation. Coding Level of Care Code Acute Expeller Worker for Kenyatta Fwarnaldo History Detailed Exam Detailed Medical Decision Making Moderate Complexity Diagnoses Tachycardia-bradycardia syndrome I49.5 Atrial fibrillation with RVR I48.91
[2022-04-30] MEDS: apixaban 5 mg Tablet PO ×2 (09:14→20:38)
[2022-04-30] MEDS: aspirin 81 mg EC Tablet PO (09:15)
[2022-04-30] MEDS: sennosides-docusate Tablet 1 TAB PO (09:15)
[2022-04-30] MEDS: magnesium oxide 400 mg tablet PO (09:17)
--- NOTE | 2022-04-30 10:34 | PM.PN ---
Subjective Subjective: Patient is endorsing feeling better however still fatigued She is able to get up on her own Did review Dr. Urbina's note today Patient is willing to stay 1 more day I will transfer her out of ICU to cardiac stepdown with telemetry and we will keep her n.p.o. after midnight in case we need any intervention I will add Ativan patient is stating that her anxiety is kicking in Vitals/I&O/Wt Last Vital Signs Temp 98.7 F 04/30/22 07:30 Pulse 69 04/30/22 09:15 Resp 13 04/30/22 09:15 BP 108/74 04/30/22 09:15 Pulse Ox 97 04/30/22 09:15 O2 Del Method 04/30/22 09:15 O2 Flow Rate 4 04/28/22 22:30 04/29/22 04/30/22 04/30/22 22:59 06:59 14:59 Intake Total 720 / 1400 240 / 1640 Output Total 500 / 500 Balance 220 / 900 240 / 1140 Weight last 48 hrs Weight 99.564 kg Physical Exam Narrative: Patient is sitting at the bedside is also they are S1, S2 no signs of A. fib Heart rate fluctuating between 40-66 Blood pressure is stable However on the softer side Nonfocal neuro exam Abdomen soft Saturating well on room air Data : 04/28/22 03:07 04/29/22 03:32 A&P Assessment and plan (1) Tachycardia-bradycardia syndrome: Status: Acute (2) Atrial fibrillation with RVR: Status: Acute (3) Anxiety: Status: Acute Plan Sick sinus syndrome A. fib converted to sinus rhythm Heart rate fluctuated between 40-66 Blood pressure is on the softer side I encouraged patient to get up walk around and see if she develops any symptoms We can transfer out of ICU to telemetry floor Continue propafenone I will keep her n.p.o. after midnight in case any intervention is required Stop magnesium I will add Ativan for her anxiety Patient does not have typical depression signs Cardiac diet for now Full code Dr. Urbina has recommended initiation of Eliquis, her [id number] or is 2 I will discontinue aspirin Patient had multiple question regarding side effects of Eliquis Attestations Medical Necessity Statement*: Out of ICU probably discharge over the weekend Time Spent in Patient Care: 30 Coding Level of Care Code Acute Warranty Administrator for Chg Fwd Diagnoses Tachycardia-bradycardia syndrome I49.5 Atrial fibrillation with RVR I48.91 Anxiety F41.9
[2022-04-30] MEDS: propafenone 150 mg Tablet PO ×3 (10:40→20:38)
--- NOTE | 2022-04-30 19:02 | PC.NURSE ---
Bedside report given with REY Castellanos. Patient and family at bedside had no questions.
[2022-05-01] VITALS (188 sets, daily range): BP systolic 83–143; BP diastolic 45–99; PULSE 51–94; RESP 0–35; TEMP 36.6–37; O2SAT 91–99
[2022-05-01 06:23] LABS: Basophils % 0.4 %; Eosinophils # 0.2 10^3/uL (0.0-0.8); Eosinophils % 3.2 %; Hematocrit 42.4 % (37.0-47.0); Hemoglobin 12.9 g/dL (11.5-15.3); Lymphocytes # 1.4 10^3/uL (0.8-4.8); Lymphocytes % 27.2 %; Mean Corpuscular HGB Conc 30.4 g/dL (30.0-36.0); Mean Corpuscular Hemoglobin 26.2 pg (28.0-34.0); Mean Corpuscular Volume 86.2 fl (81-99); Mean Platelet Volume 10.9 fL (7.4-10.4); Monocytes # 0.5 10^3/uL (0.2-0.9); Monocytes % 9.9 %; Neutrophils % 59.1 %; Nucleated Red Blood Cells % 0 %; Platelet Count 219 10^3/cmm (130-400); Red Blood Count 4.92 10^6/uL (4.1-5.3); Red Cell Distribution Width 14.5 % (12.1-15.1); White Blood Count 5.3 10^3/uL (4.0-10.0)
[2022-05-01 07:03] LABS: Alanine Aminotransferase 14 U/L (0-33); Albumin Level 3.5 g/dL (3.5-5.2); Alkaline Phosphatase 48 IU/L (35-105); Anion Gap 13.3 (5-19); Aspartate Amino Transferase 21 U/L (0-32); Blood Urea Nitrogen 11 mg/dL (8-23); Calcium 8.7 mg/dL (8.5-10.5); Carbon Dioxide 26 mmol/L (22-29); Chloride 105 mmol/L (98-107); Glucose 85 mg/dL (65-115); Osmolality Calculated 289 mOsm/kg (285-295); Potassium 4.3 mmol/L (3.5-5.1); Sodium 140 mmol/L (136-145); Total Bilirubin 0.3 mg/dL (0.15-1.2); Total Protein 6.5 g/dL (6.6-8.7)
--- NOTE | 2022-05-01 07:27 | PC.NURSE ---
Bedside report completed with REY Castellanos. Patient and patient family had no questions.
[2022-05-01] MEDS: lactated ringers 500 ML 999 ML IV (08:10)
--- NOTE | 2022-05-01 08:44 | PM.PN ---
Subjective Subjective: Patient is seems to be staying in the sinus rhythm most of the times. She has some short runs of PAT's. No significant bradycardia arrhythmias on the monitor. The vital signs remained stable. Medications: Medication Review Details: Current Medications Acetaminophen (Acetaminophen 500 Mg Tablet) 500 mg PO Q4H PRN PRN Reason: fever Albuterol/Ipratropium (Ipratropium-Albuterol 3 Ml Neb) 3 ml INHALATION Q6H PRN PRN Reason: SHORTNESS OF BREATH Apixaban (Apixaban 5 Mg Tablet) 5 mg PO BID@0900,2100 [facility] Last Admin: 04/30/22 20:38 Dose: 5 mg Lorazepam (Lorazepam 0.5 Mg Tablet) 0.25 mg PO BID PRN PRN Reason: ANXIETY Non-Formulary Medication (Oxazepam) 15 mg PO DAILY PRN PRN Reason: Anxiety Last Admin: 04/28/22 13:51 Dose: 15 mg Ondansetron HCl (Ondansetron 2 Mg/Ml Sdv 2 Ml) 4 mg IVP Q6H PRN PRN Reason: NAUSEA AND VOMITING Propafenone HCl (Propafenone 150 Mg Tablet) 150 mg PO TID [facility] Last Admin: 04/30/22 20:38 Dose: 150 mg Senna/Docusate Sodium (Sennosides-Docusate Tablet) 1 tab PO DAILY [facility] Last Admin: 04/30/22 09:15 Dose: 1 tab Vitals/I&O/Wt Last Vital Signs Temp 98.6 F 05/01/22 07:30 Pulse 64 05/01/22 08:20 Resp 17 05/01/22 08:20 BP 99/70 05/01/22 08:20 Pulse Ox 96 05/01/22 08:20 O2 Del Method 05/01/22 08:20 O2 Flow Rate 2 04/30/22 13:25 04/30/22 05/01/22 05/01/22 22:59 06:59 14:59 Intake Total 480 / 720 Output Total 1500 / 1500 Balance -1020 / -780 Weight last 48 hrs Weight 229 lb Weight 219 lb 8 oz Physical Exam Narrative: GENERAL: The patient is alert and oriented times three. Not in any acute distress. HEENT: No significant pallor, icterus or lymphadenopathy.Oral cavity: There are no mucous membrane lesions. NECK: Trachea appears to be central. No masses noted. No JVD or thyromegaly appreciated. RESPIRATORY: Chest is symmetrical. No intercostals muscle retraction or any accessory muscle activation. There is no chest wall tenderness. Breath sounds are heard bilaterally. No rales or rhonchi heard. No evidence of any consolidation. BREASTS: Deferred. HEART: The heart sounds are normal. No S3 or S4. No significant murmurs. No pericardial rub ABDOMEN: No vessel pulsations or distention. No tenderness. No organomegaly appreciated. Bowel sounds are normally heard. : Deferred. RECTAL: Deferred. LYMPHATIC: No lymphadenopathy noted in the neck. EXTREMITIES: No edema or cyanosis. No clubbing. MUSCULOSKELETAL: No acute joint deformities or swelling SKIN: There are no significant rashes or ecchymosis NEUROPSYCHIATRIC: The patient is alert and oriented x3. Appears to be in a good mood. No tremors or rigidity noted. Data : 05/01/22 05:00 05/01/22 05:00 Other Labs: Laboratory Last Values WBC 5.3 10^3/uL (4.0-10.0) 05/01/22 05:00 RBC 4.92 10^6/uL (4.1-5.3) 05/01/22 05:00 Hgb 12.9 g/dL (11.5-15.3) 05/01/22 05:00 Hct 42.4 % (37.0-47.0) 05/01/22 05:00 MCV 86.2 fl (81-99) 05/01/22 05:00 MCH 26.2 pg (28.0-34.0) L 05/01/22 05:00 MCHC 30.4 g/dL (30.0-36.0) 05/01/22 05:00 RDW 14.5 % (12.1-15.1) 05/01/22 05:00 Plt Count 219 10^3/cmm (130-400) 05/01/22 05:00 MPV 10.9 fL (7.4-10.4) H 05/01/22 05:00 Neut % (Auto) 59.1 % 05/01/22 05:00 Lymph % (Auto) 27.2 % 05/01/22 05:00 Carson % (Auto) 9.9 % 05/01/22 05:00 Eos % (Auto) 3.2 % 05/01/22 05:00 Baso % (Auto) 0.4 % 05/01/22 05:00 Neut # (Auto) 3.10 10^3/uL (1.8-7.7) 05/01/22 05:00 Lymph # (Auto) 1.4 10^3/uL (0.8-4.8) 05/01/22 05:00 Carson # (Auto) 0.5 10^3/uL (0.2-0.9) 05/01/22 05:00 Eos # (Auto) 0.2 10^3/uL (0.0-0.8) 05/01/22 05:00 Baso # (Auto) 0.0 10^3/uL (0.0-0.1) 05/01/22 05:00 Nucleated RBC % (auto) 0 % 05/01/22 05:00 Nucleated RBCs # 0.0 /100WBC 05/01/22 05:00 D-Dimer 0.66 ug/mIFEU (0-0.59) H 04/27/22 15:27 Sodium 140 mmol/L (136-145) 05/01/22 05:00 Potassium 4.3 mmol/L (3.5-5.1) 05/01/22 05:00 Chloride 105 mmol/L (98-107) 05/01/22 05:00 Carbon Dioxide 26 mmol/L (22-29) 05/01/22 05:00 Anion Gap 13.3 (5-19) 05/01/22 05:00 BUN 11 mg/dL (8-23) 05/01/22 05:00 Creatinine 0.7 mg/dL (0.5-0.9) 05/01/22 05:00 GFR Calculation 83.0 mL/min (90-130) L 05/01/22 05:00 Glucose 85 mg/dL (65-115) 05/01/22 05:00 Estimat Average Glucose 117 04/27/22 14:06 Hemoglobin A1c 5.7 % (4.0-6.0) 04/27/22 14:06 Calculated Osmolality 289 mOsm/kg (285-295) 05/01/22 05:00 Calcium 8.7 mg/dL (8.5-10.5) 05/01/22 05:00 Phosphorus 4.0 mg/dL (2.5-4.5) 04/28/22 03:07 Phosphorus Cancelled 04/28/22 03:07 Magnesium 2.1 mg/dL (1.7-2.3) 04/28/22 03:07 Magnesium Cancelled 04/28/22 03:07 Total Bilirubin 0.3 mg/dL (0.15-1.2) 05/01/22 05:00 AST 21 U/L (0-32) 05/01/22 05:00 ALT 14 U/L (0-33) 05/01/22 05:00 Alkaline Phosphatase 48 IU/L (35-105) 05/01/22 05:00 Troponin T Baseline 13 ng/L (0-10) H 04/27/22 14:06 Troponin T 120 Minute 10.38 ng/L (0-10) H 04/27/22 16:42 Delta Troponin T -2.62 ABS# (0-10) L 04/27/22 16:42 Troponin T Hi Sens 6Hr 10.55 ng/L (0-10) H 04/27/22 20:44 Troponin T Hi Sens 6Hr Delta -2.45 ng/L (0-12) L 04/27/22 20:44 C-Reactive Protein 3.0 mg/L (0.0-4.9) 04/28/22 03:07 C-Reactive Protein Cancelled 04/28/22 03:07 Total Protein 6.5 g/dL (6.6-8.7) L 05/01/22 05:00 Albumin 3.5 g/dL (3.5-5.2) 05/01/22 05:00 Globulin 3.0 g/dL (1.3-4.6) 05/01/22 05:00 TSH 2.57 uIU/mL (0.27-4.20) 04/27/22 14:06 A&P Assessment and plan (1) Tachycardia-bradycardia syndrome: The heart rate seems to be staying in the normal range most the times. Status: Acute (2) Atrial fibrillation with RVR: Patient is currently on propafenone 150 mg p.o. 3 times daily. She seems to be tolerating the medication so far well. She also is on Eliquis. This may be continued. Status: Acute (3) Anxiety: Seems to be responding to medication. Status: Acute Plan Patient may be continued on the telemetry today. If she continues remain stable, may be discharged home tomorrow on propafenone and other current medications. She may require an event monitor as an outpatient. She may be moved to a telemetry floor. Attestations Medical Necessity Statement*: Patient requires continued hospital stay for close monitoring and possible discharge home tomorrow Coding Level of Care Code Acute Fiberglass Technician for Kenyatta Fwarnaldo History Expanded Problem Focused Exam Detailed Medical Decision Making Moderate Complexity Diagnoses Tachycardia-bradycardia syndrome I49.5 Atrial fibrillation with RVR I48.91 Anxiety F41.9
[2022-05-01] MEDS: apixaban 5 mg Tablet PO ×2 (09:10→20:23)
[2022-05-01] MEDS: sennosides-docusate Tablet 1 TAB PO (09:10)
[2022-05-01] MEDS: propafenone 150 mg Tablet PO ×3 (09:10→20:23)
--- NOTE | 2022-05-01 12:15 | PM.PN ---
Subjective Subjective: This morning patient was explaining that she felt lightheaded when she walked down the merchant, this morning also her heart rate dipped down to 30s which telemetry did not catch at all, Dr. Gonzales has recommended monitor for 1 more day continue propafenone I have given her 500 mill LR bolus blood pressure Vitals/I&O/Wt Last Vital Signs Temp 98.6 F 05/01/22 07:30 Pulse 68 05/01/22 10:35 Resp 16 05/01/22 10:35 BP 108/61 05/01/22 10:35 Pulse Ox 98 05/01/22 10:35 O2 Del Method 05/01/22 10:35 O2 Flow Rate 2 04/30/22 13:25 04/30/22 05/01/22 05/01/22 22:59 06:59 14:59 Intake Total 480 / 720 722 / 722 Output Total 1500 / 1500 Balance -1020 / -780 722 / 722 Weight last 48 hrs Weight 103.873 kg Weight 99.564 kg Physical Exam Narrative: Awake and alert Nonfocal neuro exam S1, S2 No respiratory distress Saturating well on room air Has been at the bedside Pleasant and cooperative Nonfocal neuro exam No active distress Data : 05/01/22 05:00 05/01/22 05:00 A&P Assessment and plan (1) Anxiety: Status: Acute (2) Tachycardia-bradycardia syndrome: Status: Acute (3) Atrial fibrillation with RVR: Status: Acute Plan Would like to monitor 1 more day as per the cardiology For low blood pressure she was given LR 500 mL bolus She is awake and alert Nonfocal Asymptomatic for now No acute indication for pacemaker I have resumed her cardiac diet today She has been started on Eliquis 5 mg twice daily as per Dr. Urbina's recommendation, if she stays stable plan to discharge her on event monitor, possible stress test outpatient DVT prophylaxis on board She does not need labs for tomorrow Attestations Medical Necessity Statement*: Discharge tomorrow Time Spent in Patient Care: 30 Coding Level of Care Code Acute Mixer Operator Raw Salt for Kenyatta Reddy Diagnoses Anxiety F41.9 Tachycardia-bradycardia syndrome I49.5 Atrial fibrillation with RVR I48.91
--- NOTE | 2022-05-01 13:47 | PC.SOCIAL ---
IMM Update pg 2 of [facility] udpated and reviewed w/ patient. Copy provided and Copy dated, initialed and placed in chart.
[2022-05-02] VITALS (54 sets, daily range): BP systolic 80–130; BP diastolic 44–85; PULSE 18–86; RESP 0–72; TEMP 36.4; O2SAT 90–100
--- NOTE | 2022-05-02 03:36 | PC.NURSE ---
Raiza scanned and administered on 05/01/2022 at 2022 but did not save to NOV.
[2022-05-02] MEDS: sodium chloride 0.9% 500 ML IV (06:00)
--- NOTE | 2022-05-02 08:38 | PM.PN ---
Subjective Subjective: Patient continues to remain in sinus rhythm. No significant tachycardia or bradyarrhythmias. No significant pauses. Tolerating propafenone so far well Medications: Medication Review Details: Current Medications Acetaminophen (Acetaminophen 500 Mg Tablet) 500 mg PO Q4H PRN PRN Reason: fever Albuterol/Ipratropium (Ipratropium-Albuterol 3 Ml Neb) 3 ml INHALATION Q6H PRN PRN Reason: SHORTNESS OF BREATH Apixaban (Apixaban 5 Mg Tablet) 5 mg PO BID@0900,2100 [facility] Last Admin: 05/01/22 20:23 Dose: 5 mg Lorazepam (Lorazepam 0.5 Mg Tablet) 0.25 mg PO BID PRN PRN Reason: ANXIETY Non-Formulary Medication (Oxazepam) 15 mg PO DAILY PRN PRN Reason: Anxiety Last Admin: 04/28/22 13:51 Dose: 15 mg Ondansetron HCl (Ondansetron 2 Mg/Ml Sdv 2 Ml) 4 mg IVP Q6H PRN PRN Reason: NAUSEA AND VOMITING Propafenone HCl (Propafenone 150 Mg Tablet) 150 mg PO TID [facility] Last Admin: 05/01/22 20:23 Dose: 150 mg Senna/Docusate Sodium (Sennosides-Docusate Tablet) 1 tab PO DAILY [facility] Last Admin: 05/01/22 09:10 Dose: 1 tab Vitals/I&O/Wt Last Vital Signs Temp 97.8 F 05/01/22 20:15 Pulse 50 L 05/02/22 06:45 Resp 17 05/02/22 06:45 BP 121/70 05/02/22 06:45 Pulse Ox 92 05/02/22 06:45 O2 Del Method 05/02/22 00:00 O2 Flow Rate 2 04/30/22 13:25 05/01/22 05/02/22 05/02/22 22:59 06:59 14:59 Intake Total 300 / 1244 980 / 2224 Balance 300 / 1244 980 / 2224 Weight last 48 hrs Weight 229 lb Weight 229 lb Physical Exam Narrative: GENERAL: The patient is alert and oriented times three. Not in any acute distress. HEENT: No significant pallor, icterus or lymphadenopathy.Oral cavity: There are no mucous membrane lesions. NECK: Trachea appears to be central. No masses noted. No JVD or thyromegaly appreciated. RESPIRATORY: Chest is symmetrical. No intercostals muscle retraction or any accessory muscle activation. There is no chest wall tenderness. Breath sounds are heard bilaterally. No rales or rhonchi heard. No evidence of any consolidation. BREASTS: Deferred. HEART: The heart sounds are normal. No S3 or S4. No significant murmurs. No pericardial rub ABDOMEN: No vessel pulsations or distention. No tenderness. No organomegaly appreciated. Bowel sounds are normally heard. : Deferred. RECTAL: Deferred. LYMPHATIC: No lymphadenopathy noted in the neck. EXTREMITIES: No edema or cyanosis. No clubbing. MUSCULOSKELETAL: No acute joint deformities or swelling SKIN: There are no significant rashes or ecchymosis NEUROPSYCHIATRIC: The patient is alert and oriented x3. Appears to be in a good mood. No tremors or rigidity noted. Data : 05/01/22 05:00 05/01/22 05:00 Other Labs: Laboratory Last Values WBC 5.3 10^3/uL (4.0-10.0) 05/01/22 05:00 RBC 4.92 10^6/uL (4.1-5.3) 05/01/22 05:00 Hgb 12.9 g/dL (11.5-15.3) 05/01/22 05:00 Hct 42.4 % (37.0-47.0) 05/01/22 05:00 MCV 86.2 fl (81-99) 05/01/22 05:00 MCH 26.2 pg (28.0-34.0) L 05/01/22 05:00 MCHC 30.4 g/dL (30.0-36.0) 05/01/22 05:00 RDW 14.5 % (12.1-15.1) 05/01/22 05:00 Plt Count 219 10^3/cmm (130-400) 05/01/22 05:00 MPV 10.9 fL (7.4-10.4) H 05/01/22 05:00 Neut % (Auto) 59.1 % 05/01/22 05:00 Lymph % (Auto) 27.2 % 05/01/22 05:00 Pennington % (Auto) 9.9 % 05/01/22 05:00 Eos % (Auto) 3.2 % 05/01/22 05:00 Baso % (Auto) 0.4 % 05/01/22 05:00 Neut # (Auto) 3.10 10^3/uL (1.8-7.7) 05/01/22 05:00 Lymph # (Auto) 1.4 10^3/uL (0.8-4.8) 05/01/22 05:00 Pennington # (Auto) 0.5 10^3/uL (0.2-0.9) 05/01/22 05:00 Eos # (Auto) 0.2 10^3/uL (0.0-0.8) 05/01/22 05:00 Baso # (Auto) 0.0 10^3/uL (0.0-0.1) 05/01/22 05:00 Nucleated RBC % (auto) 0 % 05/01/22 05:00 Nucleated RBCs # 0.0 /100WBC 05/01/22 05:00 D-Dimer 0.66 ug/mIFEU (0-0.59) H 04/27/22 15:27 Sodium 140 mmol/L (136-145) 05/01/22 05:00 Potassium 4.3 mmol/L (3.5-5.1) 05/01/22 05:00 Chloride 105 mmol/L (98-107) 05/01/22 05:00 Carbon Dioxide 26 mmol/L (22-29) 05/01/22 05:00 Anion Gap 13.3 (5-19) 05/01/22 05:00 BUN 11 mg/dL (8-23) 05/01/22 05:00 Creatinine 0.7 mg/dL (0.5-0.9) 05/01/22 05:00 GFR Calculation 83.0 mL/min (90-130) L 05/01/22 05:00 Glucose 85 mg/dL (65-115) 05/01/22 05:00 Estimat Average Glucose 117 04/27/22 14:06 Hemoglobin A1c 5.7 % (4.0-6.0) 04/27/22 14:06 Calculated Osmolality 289 mOsm/kg (285-295) 05/01/22 05:00 Calcium 8.7 mg/dL (8.5-10.5) 05/01/22 05:00 Phosphorus 4.0 mg/dL (2.5-4.5) 04/28/22 03:07 Phosphorus Cancelled 04/28/22 03:07 Magnesium 2.1 mg/dL (1.7-2.3) 04/28/22 03:07 Magnesium Cancelled 04/28/22 03:07 Total Bilirubin 0.3 mg/dL (0.15-1.2) 05/01/22 05:00 AST 21 U/L (0-32) 05/01/22 05:00 ALT 14 U/L (0-33) 05/01/22 05:00 Alkaline Phosphatase 48 IU/L (35-105) 05/01/22 05:00 Troponin T Baseline 13 ng/L (0-10) H 04/27/22 14:06 Troponin T 120 Minute 10.38 ng/L (0-10) H 04/27/22 16:42 Delta Troponin T -2.62 ABS# (0-10) L 04/27/22 16:42 Troponin T Hi Sens 6Hr 10.55 ng/L (0-10) H 04/27/22 20:44 Troponin T Hi Sens 6Hr Delta -2.45 ng/L (0-12) L 04/27/22 20:44 C-Reactive Protein 3.0 mg/L (0.0-4.9) 04/28/22 03:07 C-Reactive Protein Cancelled 04/28/22 03:07 Total Protein 6.5 g/dL (6.6-8.7) L 05/01/22 05:00 Albumin 3.5 g/dL (3.5-5.2) 05/01/22 05:00 Globulin 3.0 g/dL (1.3-4.6) 05/01/22 05:00 TSH 2.57 uIU/mL (0.27-4.20) 04/27/22 14:06 A&P Assessment and plan (1) Tachycardia-bradycardia syndrome: The heart rate seems to be staying in the normal range most the times. No symptomatic bradycardia on tachycardia on the monitor. Status: Acute (2) Atrial fibrillation with RVR: Patient is currently on propafenone 150 mg p.o. 3 times daily. She seems to be tolerating the medication so far well. She also is on Eliquis. This may be continued. Status: Acute (3) Anxiety: Seems to be responding to medication. Status: Acute Plan Since the patient continues remain stable, she may be discharged home from a cardiac standpoint, on the current medications. She need to be placed on an event monitor for 30 days to look for any significant tacky or bradycardia arrhythmias. Will be seen of the [facility] by the nurse practitioner in 1 week. I am is in the office in 1 month. Attestations Medical Necessity Statement*: Possible discharge home today Coding Level of Care Code Acute Balance Clerk for Khushboog Fwd History Expanded Problem Focused Exam Detailed Medical Decision Making Moderate Complexity Diagnoses Tachycardia-bradycardia syndrome I49.5 Atrial fibrillation with RVR I48.91 Anxiety F41.9
[2022-05-02] MEDS: apixaban 5 mg Tablet PO (08:39)
[2022-05-02] MEDS: propafenone 150 mg Tablet PO (10:02)
--- NOTE | 2022-05-02 12:29 | P.DS_ITS ---
Discharge Providers Date of Admission: 04/28/22 11:56 Date of Discharge: May 02, 2022 Attending Provider at Admission: Pancho Redd MD Attending Provider at Discharge: Pancho Redd MD Primary Care Provider: Jd Boothe Diagnoses at Discharge Discharge Diagnosis (1) Tachycardia-bradycardia syndrome: Status: Acute (2) Atrial fibrillation with RVR: Status: Acute (3) Anxiety: Status: Acute Reason for Visit Reason for Visit: Irregular heartbeat Hospital Course Hospital Course 71-year-old female without significant past medical surgical history who presented to the hospital with chief complaint of skipping heartbeat. She was diagnosed with new onset A. fib in the ER, she was started on esmolol drip, after few minutes rhythm converted to sinus and heart rate dropped to 30s, esmolol drip was turned off however after 2 hours she went back into A. fib RVR heart rate 145, she received amiodarone 150 mg IV bolus which dropped her heart rate back into 40s, cardiology was consulted, her metoprolol dose was decreased and propafenone was added. Intermittently her heart rate would drop down to low 40s without any worsening of her symptoms. Her blood pressure at baseline runs soft. She was complaining of some anxiety however no chest pain, dizziness, confusion or syncopal events. She was evaluated by Dr. Urbina in the beginning and Dr. Gonzales decided to discharge her over the weekend with event monitor, propafenone 3 times a day and a close follow-up with the cardiology clinic. She goes to [facility] pharmacy however it is close on Tuesday I will send her Eliquis and propafenone to [facility] pharmacy. Dr. Urbina recommended Eliquis because of her paroxysmal A. fib which carries high risk of CV events although her [id number] is 2. Echo showed grade 2 diastolic dysfunction, preserved ejection fraction. Initially there was a plan for pacemaker placement however with close monitoring in ICU and titration of her medications decision was made to discharge her on propafenone with event monitor. She does seem to have sick sinus syndrome. Low threshold for pacemaker placement. In last 24 hours her lowest heart rate was 52, sinus rhythm. Physical Exam Narrative: Awake and alert Nonfocal neuro exam S1, S2 No respiratory distress Saturating well on room air Has been at the bedside Pleasant and cooperative Nonfocal neuro exam No active distres Discharge Data Studies Completed and Pending Completed Studies During Hospitalization Category Date Time Status CV. echo complete* [id number] Routine Ultrasound 04/28/22 09:00 Completed Laboratory Results WBC 5.3 10^3/uL (4.0-10.0) 05/01/22 05:00 RBC 4.92 10^6/uL (4.1-5.3) 05/01/22 05:00 Hgb 12.9 g/dL (11.5-15.3) 05/01/22 05:00 Hct 42.4 % (37.0-47.0) 05/01/22 05:00 MCV 86.2 fl (81-99) 05/01/22 05:00 MCH 26.2 pg (28.0-34.0) L 05/01/22 05:00 MCHC 30.4 g/dL (30.0-36.0) 05/01/22 05:00 RDW 14.5 % (12.1-15.1) 05/01/22 05:00 Plt Count 219 10^3/cmm (130-400) 05/01/22 05:00 MPV 10.9 fL (7.4-10.4) H 05/01/22 05:00 Neut % (Auto) 59.1 % 05/01/22 05:00 Lymph % (Auto) 27.2 % 05/01/22 05:00 Terrell % (Auto) 9.9 % 05/01/22 05:00 Eos % (Auto) 3.2 % 05/01/22 05:00 Baso % (Auto) 0.4 % 05/01/22 05:00 Neut # (Auto) 3.10 10^3/uL (1.8-7.7) 05/01/22 05:00 Lymph # (Auto) 1.4 10^3/uL (0.8-4.8) 05/01/22 05:00 Terrell # (Auto) 0.5 10^3/uL (0.2-0.9) 05/01/22 05:00 Eos # (Auto) 0.2 10^3/uL (0.0-0.8) 05/01/22 05:00 Baso # (Auto) 0.0 10^3/uL (0.0-0.1) 05/01/22 05:00 Nucleated RBC % (auto) 0 % 05/01/22 05:00 Nucleated RBCs # 0.0 /100WBC 05/01/22 05:00 D-Dimer 0.66 ug/mIFEU (0-0.59) H 04/27/22 15:27 Sodium 140 mmol/L (136-145) 05/01/22 05:00 Potassium 4.3 mmol/L (3.5-5.1) 05/01/22 05:00 Chloride 105 mmol/L (98-107) 05/01/22 05:00 Carbon Dioxide 26 mmol/L (22-29) 05/01/22 05:00 Anion Gap 13.3 (5-19) 05/01/22 05:00 BUN 11 mg/dL (8-23) 05/01/22 05:00 Creatinine 0.7 mg/dL (0.5-0.9) 05/01/22 05:00 GFR Calculation 83.0 mL/min (90-130) L 05/01/22 05:00 Glucose 85 mg/dL (65-115) 05/01/22 05:00 Estimat Average Glucose 117 04/27/22 14:06 Hemoglobin A1c 5.7 % (4.0-6.0) 04/27/22 14:06 Calculated Osmolality 289 mOsm/kg (285-295) 05/01/22 05:00 Calcium 8.7 mg/dL (8.5-10.5) 05/01/22 05:00 Phosphorus 4.0 mg/dL (2.5-4.5) 04/28/22 03:07 Phosphorus Cancelled 04/28/22 03:07 Magnesium 2.1 mg/dL (1.7-2.3) 04/28/22 03:07 Magnesium Cancelled 04/28/22 03:07 Total Bilirubin 0.3 mg/dL (0.15-1.2) 05/01/22 05:00 AST 21 U/L (0-32) 05/01/22 05:00 ALT 14 U/L (0-33) 05/01/22 05:00 Alkaline Phosphatase 48 IU/L (35-105) 05/01/22 05:00 Troponin T Baseline 13 ng/L (0-10) H 04/27/22 14:06 Troponin T 120 Minute 10.38 ng/L (0-10) H 04/27/22 16:42 Delta Troponin T -2.62 ABS# (0-10) L 04/27/22 16:42 Troponin T Hi Sens 6Hr 10.55 ng/L (0-10) H 04/27/22 20:44 Troponin T Hi Sens 6Hr Delta -2.45 ng/L (0-12) L 04/27/22 20:44 C-Reactive Protein 3.0 mg/L (0.0-4.9) 04/28/22 03:07 C-Reactive Protein Cancelled 04/28/22 03:07 Total Protein 6.5 g/dL (6.6-8.7) L 05/01/22 05:00 Albumin 3.5 g/dL (3.5-5.2) 05/01/22 05:00 Globulin 3.0 g/dL (1.3-4.6) 05/01/22 05:00 TSH 2.57 uIU/mL (0.27-4.20) 04/27/22 14:06 Vitals Last Vital Signs Temp 97.6 F 05/02/22 08:30 Pulse 76 05/02/22 10:00 Resp 13 05/02/22 10:00 BP 93/77 05/02/22 10:00 Pulse Ox 97 05/02/22 10:00 O2 Del Method 05/02/22 08:30 O2 Flow Rate 2 04/30/22 13:25 Discharge Plan Discharge Patient Disposition: Home Condition: Stable Prescriptions: New Eliquis 5 mg Tablet 5 mg PO BID@0900,2100 60 Days Qty: 120 0RF propafenone 150 mg Tablet 150 mg PO TID Qty: 90 1RF Continued oxazepam 15 mg capsule 15 mg PO DAILY PRN (Reason: Anxiety) zinc 50 mg Tablet 50 mg PO DAILY PRN (Reason: UNKNOWN) garlic Tablet 1 tab PO DAILY PRN (Reason: UNKNOWN) Elderberry 200 mg Capsule 200 mg PO DAILY PRN (Reason: UNKNOWN) Vitamin D3 25 mcg (1,000 unit) Tablet 25 mcg PO DAILY PRN (Reason: UNKNOWN) Emergen-C 1,000 mg Powder Effervescent In Packet 1 ea PO DAILY Discharge Orders: Discharge Order (Routine); Ordered 05/02/22 Ordered By: Pancho Redd Other Ambulatory Orders: MCT/Event Monitor 30 Days (Routine) Timeframe: 1 Month Facility: [facility] - Location: Radiology Ordered By: Pancho Redd Referrals: Bentley Gonzales MD [Physician] - 2 weeks Jd Boothe [Primary Care Provider] - Reyna Hester FNP [Nurse Practitioner] - 1 week Discharge Diet: Cardiac Discharge Activity: Increase activity as tolerated Patient Instructions: Opioid Safety Activity Restrictions/Additional Instructions: Do not drive until cleared by cardiology You will get event monitor for at least 30 days You are getting anticoagulating agents Eliquis which you will take 5 mg twice a day for risk of stroke recommended by community development specialist I have sent a prescription to [facility] pharmacy, when you see a community development specialist after a week you can request [facility] pharmacy for the refills Please do not hesitate to call us if you have any questions. Discharge Attestations Time Spent in Discharge Care*: less than 30 min Quality Metrics Clinical Quality Measures [ No reported AMI, CVA or VTE this stay] Coding Level of Care Code Acute Chg DC note Diagnoses Tachycardia-bradycardia syndrome I49.5 Atrial fibrillation with RVR I48.91 Anxiety F41.9
--- NOTE | 2022-05-02 13:42 | PC.NURSE ---
PAtient is ready for discharge. Medications sent to [facility] pharmacy. IV removed and intact. All belongings sent with patient including home meds from the [facility]. Cardiology clinic to call tomorrow to set up appointments. Patient given instructions to return to cardiology clinic tommorow for an event monitor.
== END 2022-05-02 13:43 | disposition home or self-care (01) | DRG 310 ==
LOC: ER 15:30 → ICU 17:19
PROVIDERS: Emergency Medicine; Admitting Provider Internal Medicine; Emergency Provider Family Medicine; PCP Family Medicine; Visit Provider Internal Medicine
DX: I48.91 Unspecified atrial fibrillation (principal); I49.5 Sick sinus syndrome; F41.9 Anxiety disorder, unspecified
CPT/HCPCS: 36415; 80048; 80053; 83036; 83735; 84100; 84443; 84484; 85025; 85378; 86140; 93005; 93306; 94760; 96372; 96374; 99285; C9113; G0378; J0282; J1650; J3490; J7040; J7060

== ENCOUNTER → 2022-05-11 10:41 | Outpatient (BNVA) | payer MEDICARE, OTHER, SELFPAY | PROVIDERS: PCP Family Medicine; Visit Provider Nurse Practitioner Family | DX: I48.91 Unspecified atrial fibrillation (principal); I45.10 Unspecified right bundle-branch block | CPT/HCPCS: 93005; 99214 ==

== ENCOUNTER → 2022-06-21 09:50 | Outpatient (BNVA) | payer MEDICARE, OTHER, SELFPAY | PROVIDERS: PCP Family Medicine; Visit Provider Nurse Practitioner Family | DX: I48.91 Unspecified atrial fibrillation (principal); Z79.01 Long term (current) use of anticoagulants; Z87.891 Personal history of nicotine dependence | CPT/HCPCS: 99213 ==

== ENCOUNTER 2022-06-29 05:42 | Inpatient (IN) | payer MEDICARE, OTHER, SELFPAY ==
[2022-06-29] VITALS (9 sets, daily range): BP systolic 103–138; BP diastolic 67–98; PULSE 68–155; RESP 12–24; TEMP 36.2–36.4; O2SAT 95–99; BMI 40.7
--- NOTE | 2022-06-29 05:51 | ECG_ITS ---
[facility] Test Date: 2022-06-29 Pat Name: Sanam Smith Department: Room: Gender: Female Combat Engineer: : [id number] Requested By: Tato Klein Order Number: [id number] Joshua MD: Saumya Riley M.D. Measurements Intervals [place] Rate: 145 P: WI: QRS: 63 QRSD: 96 T: -44 QT: 250 QTc: 389 Interpretive Statements ATRIAL FIBRILLATION WITH RAPID VENTRICULAR RESPONSE LOW QRS VOLTAGE IN PRECORDIAL LEADS [QRS DEFLECTION < 1.0 mV IN CHEST LEADS] POSSIBLE RIGHT VENTRICULAR CONDUCTION DELAY [RSR (QR) IN V1/V2] NONSPECIFIC ST & T-WAVE ABNORMALITY Compared to ECG 04/29/2022 08:30:59 T-wave abnormality now present Sinus bradycardia no longer present Sinus arrhythmia no longer present Short WI interval no longer present Electronically Signed On 06-29-2022 20:29:37 CDT by Saumya Riley M.D. [id number]
[2022-06-29] MEDS: dilTIAZem 5 mg/mL SDV 5 mL 20 MG IVP (06:04)
--- NOTE | 2022-06-29 06:06 | XR_ITS ---
WS: [id number] XR chest 1V portable [id number] REASON FOR EXAM: dyspnea/cough FINDINGS: Mild tortuosity and ectasia of the thoracic aorta. Heart size at the upper limits of normal. Calcified granulomatous disease in both hemithoraces. No acute pulmonary parenchymal or pleural abnormality. Moderate degenerative spondylosis in the mid and lower thoracic spine. XR/XR chest 1V portable [id number] IMPRESSION: No acute chest abnormality.
--- NOTE | 2022-06-29 06:10 | ECG_ITS ---
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 Measurements Intervals [place] Rate: 72 P: [place]: QRS: 67 QRSD: 99 T: 43 QT: 384 QTc: 421 Interpretive Statements ATRIAL FIBRILLATION LOW QRS VOLTAGE IN PRECORDIAL LEADS [QRS DEFLECTION < 1.0 mV IN CHEST LEADS] POSSIBLE RIGHT VENTRICULAR CONDUCTION DELAY Compared to ECG 04/29/2022 08:30:59 Sinus bradycardia no longer present Sinus arrhythmia no longer present Short [place] interval no longer present Electronically Signed On 06-29-2022 13:54:15 CDT by Saumya Riley M.D. [id number]
[2022-06-29 06:11] LABS: Basophils # 0.1 10^3/uL (0.0-0.1); Basophils % 0.9 %; Eosinophils # 0.3 10^3/uL (0.0-0.8); Eosinophils % 3.8 %; Hematocrit 48.7 % (37.0-47.0); Hemoglobin 15.2 g/dL (11.5-15.3); Lymphocytes # 2.4 10^3/uL (0.8-4.8); Lymphocytes % 31.1 %; Mean Corpuscular HGB Conc 31.2 g/dL (30.0-36.0); Mean Corpuscular Hemoglobin 26.5 pg (28.0-34.0); Mean Platelet Volume 10.3 fL (7.4-10.4); Monocytes # 0.7 10^3/uL (0.2-0.9); Monocytes % 8.7 %; Neutrophils # 4.17 10^3/uL (1.8-7.7); Neutrophils % 55.2 %; Nucleated Red Blood Cells % 0 %; Platelet Count 277 10^3/cmm (130-400); Red Blood Count 5.73 10^6/uL (4.1-5.3); Red Cell Distribution Width 14.6 % (12.1-15.1); White Blood Count 7.6 10^3/uL (4.0-10.0)
--- NOTE | 2022-06-29 06:13 | ED_ITS ---
HPI - Arrhythmia/Palpitations General: Chief Complaint: Arrhythmia/Palpitations Stated Complaint: Afib Time Seen by Provider: 06/29/22 06:05 Source: patient Mode of arrival: ambulatory History of Present Illness: 71-year-old female who presents to the emergency room with complaint of rapid heart rate. She has had a known history of atrial fibrillation with difficult to control rate. I admitted this patient in early April at which time we put her on an esmolol drip she became significantly bradycardic. Her heart rate got into the 30s. She was hospitalized reviewing the cardiology notes. She had difficult time with rate control she was started on metoprolol dose looksee was titrated down to 12.5 twice daily and they added propafenone. He recently stopped the propafenone in the office and changed her to amiodarone. This morning she woke up with a rapid heart rate she denies any chest pain orthopnea or PND. MD complaint: rapid heart beat Onset (ago): hour(s) Duration: constant Severity: moderate Context: occurred during rest Arrhythmia history: atrial fibrillation Associated symptoms: Deny anxiety, cough, diaphoresis, muscle cramps, nausea, paresthesias, pre-syncope, sense of impending doom, short of breath, syncope or vomiting Treatments prior to arrival: beta-josephine and amiodarone Review of Systems Const: Reports: fatigue; Denies: fever(s), chills, malaise or diaphoresis ENMT: Denies: throat pain, ear or mastoid pain, nasal discharge or nasal congestion Card: Reports: palpitations and irregular heart rhythm; Denies: chest pain, edema, swelling of feet/ankles, syncope, pre-syncope, dyspnea on exertion or orthopnea Resp: Denies: dyspnea, productive cough or non-productive cough GI: Denies: abdominal pain, nausea or vomiting : Denies: flank pain, difficulty voiding, dysuria, urinary frequency or urinary urgency Musc: Denies: neck pain, back pain or muscle cramps Skin/Breast: Denies: rash or pruritus Psych: Denies: anxiety PFSH ED PFSH: Medical History Anxiety Atrial fibrillation with RVR No pertinent past medical history Tachycardia-bradycardia syndrome Surgical History No pertinent past surgical history Social History Smoking and tobacco status: former smoker Physical Exam Const: COMMON NORMALS: no acute distress GENERAL APPEARANCE: cooperative and comfortable ORIENTATION/CONSCIOUSNESS: Yes awake, Yes oriented to person, Yes oriented to place and Yes oriented to time HENMT: COMMON NORMALS: normocephalic, atraumatic and hearing grossly normal bi laterally HEAD & SCALP: normocephalic and atraumatic Resp: COMMON NORMALS: normal respiratory effort, No retractions, No use of accessory muscles and clear to auscultation bilaterally AUSCULTATION: clear to auscultation bilaterally Cardio: RATE: tachycardic RHYTHM: abnormal rhythm irregularly irregular GI: COMMON NORMALS: Soft to palpation and No hepatosplenomegaly present AUSCULTATION: Yes normoactive bowel sounds PALPATION: Yes Soft to palpation, No Tenderness to palpation present (GI), No Guarding due to palpation present (GI) and Yes No hepatosplenomegaly present Extremity: COMMON NORMALS: normal to inspection, capillary refill normal, no clubbing, cyanosis or edema, no calf tenderness and no pedal edema Neuro: SENSORIUM/ORIENTATION: Yes oriented to person, Yes oriented to place a nd Yes oriented to time Skin: COMMON NORMALS: no rashes or lesions noted GENERAL SKIN EXAM: no rashes or lesions noted Course Vital Signs: Vital signs: Vital Signs Temperature 97.2 F L 06/29/22 05:48 Pulse Rate 76 06/29/22 07:47 Respiratory Rate 18 06/29/22 07:47 Blood Pressure 103/67 06/29/22 07:47 Pulse Oximetry 96 06/29/22 07:47 Oxygen Delivery Me thod 06/29/22 07:47 MDM - Arrhythmia/Palpitations Medical Decision Making Patient responded very well to diltiazem. The push dose along put her back into a controlled rate. Patient was given her regular oral medications and monitored for couple of hours her rate remained controlled. We are about to discharge her and she had a short self terminating run of V. tach. I reviewed her chart from cardiology office and previously since she has been on several different medications and trouble with bradycardia tacky syndrome. In Dr. Flores's note for consultation in early April did mention that he thought at some point she would need a pacemaker. Talk to Dr. Meza about admitting the patient. He noted in the old records that the patient had several runs of V. tach on Holter monitor. I called Dr. Gonzales he was familiar with the patient and his recollection that they changed her from propafenone to amiodarone because of the runs of V. tach. I cannot tell how long she has been on the amiodarone. Patient tells me she thought it was within the last week that made the change. Dr. Gonzales felt it would be helpful to admit the patient loaded with amiodarone and monitor and make further medication adjustments have discussed with Dr. Meza he will admit Dr. Gonzales will consult reviewed with patient as well. Medical Records I reviewed the patient's medical records. Lab Data I reviewed the patient's lab results. : 06/29/22 05:54 06/29/22 06:15 Radiology Impressions Chest X-Ray 06/29/22 06:06 IMPRESSION: No acute chest abnormality. Laboratory Results WBC 7.6 10^3/uL (4.0-10.0) 06/29/22 05:54 RBC 5.73 10^6/uL (4.1-5.3) H 06/29/22 05:54 Hgb 15.2 g/dL (11.5-15.3) 06/29/22 05:54 Hct 48.7 % (37.0-47.0) H 06/29/22 05:54 MCV 85.0 fl (81-99) 06/29/22 05:54 MCH 26.5 pg (28.0-34.0) L 06/29/22 05:54 MCHC 31.2 g/dL (30.0-36.0) 06/29/22 05:54 RDW 14.6 % (12.1-15.1) 06/29/22 05:54 Plt Count 277 10^3/cmm (130-400) 06/29/22 05:54 MPV 10.3 fL (7.4-10.4) 06/29/22 05:54 Neut % (Auto) 55.2 % 06/29/22 05:54 Lymph % (Auto) 31.1 % 06/29/22 05:54 [place] % (Auto) 8.7 % 06/29/22 05:54 Eos % (Auto) 3.8 % 06/29/22 05:54 Baso % (Auto) 0.9 % 06/29/22 05:54 Neut # (Auto) 4.17 10^3/uL (1.8-7.7) 06/29/22 05:54 Lymph # (Auto) 2.4 10^3/uL (0.8-4.8) 06/29/22 05:54 [place] # (Auto) 0.7 10^3/uL (0.2-0.9) 06/29/22 05:54 Eos # (Auto) 0.3 10^3/uL (0.0-0.8) 06/29/22 05:54 Baso # (Auto) 0.1 10^3/uL (0.0-0.1) 06/29/22 05:54 Nucleated RBC % (auto) 0 % 06/29/22 05:54 Nucleated RBCs # 0.0 /100WBC 06/29/22 05:54 Sodium 140 mmol/L (136-145) 06/29/22 06:15 Potassium 4.2 mmol/L (3.5-5.1) 06/29/22 06:15 Chloride 104 mmol/L (98-107) 06/29/22 06:15 Carbon Dioxide 25 mmol/L (22-29) 06/29/22 06:15 Anion Gap 15.2 (5-19) 06/29/22 06:15 BUN 10 mg/dL (8-23) 06/29/22 06:15 Creatinine 0.9 mg/dL (0.5-0.9) 06/29/22 06:15 GFR Calculation 62.1 mL/min (90-130) L 06/29/22 06:15 Glucose 98 mg/dL (65-115) 06/29/22 06:15 Calculated Osmolality 289 mOsm/kg (285-295) 06/29/22 06:15 Calcium 9.2 mg/dL (8.5-10.5) 06/29/22 06:15 Total Bilirubin 0.3 mg/dL (0.15-1.2) 06/29/22 06:15 AST 26 U/L (0-32) 06/29/22 06:15 ALT 17 U/L (0-33) 06/29/22 06:15 Alkaline Phosphatase 56 U/L (35-105) 06/29/22 06:15 NT-Pro-B Natriuret Pep 733 pg/mL (0-125) H 06/29/22 06:15 Total Protein 7.1 g/dL (6.6-8.7) 06/29/22 06:15 Albumin 3.7 g/dL (3.5-5.2) 06/29/22 06:15 Globulin 3.4 g/dL (1.3-4.6) 06/29/22 06:15 Discharge Plan Discharge Patient Disposition: Admitted As Inpatient Clinical Impression: Atrial fibrillation with rapid ventricular response, Ventricular tachycardia Condition: Stable Prescriptions: No Action metoprolol tartrate 25 mg tablet 25 mg PO BID Qty: 60 2RF amiodarone 200 mg tablet 200 mg PO DAILY Qty: 90 1RF oxazepam 15 mg capsule 15 mg PO DAILY PRN (Reason: Anxiety) zinc 50 mg Tablet 50 mg PO DAILY PRN (Reason: UNKNOWN) garlic Tablet 1 tab PO DAILY PRN (Reason: UNKNOWN) elderberry fruit 200 mg Capsule 200 mg PO DAILY PRN (Reason: UNKNOWN) cholecalciferol (vitamin D3) [Vitamin D3] 25 mcg (1,000 unit) Tablet 25 mcg PO DAILY PRN (Reason: UNKNOWN) Emergen-C 1,000 mg Powder Effervescent In Packet 1 ea PO DAILY Referrals: Jd Boothe [Primary Care Provider] - Coding Level of Care Code ED Senior Principal Software Engineer for Kenyatta Reddy
[2022-06-29 06:56] LABS: Alanine Aminotransferase 17 U/L (0-33); Albumin Level 3.7 g/dL (3.5-5.2); Alkaline Phosphatase 56 U/L (35-105); Blood Urea Nitrogen 10 mg/dL (8-23); Calcium 9.2 mg/dL (8.5-10.5); Carbon Dioxide 25 mmol/L (22-29); Chloride 104 mmol/L (98-107); Globulin 3.4 g/dL (1.3-4.6); Glomerular Filtration Rate 62.1 mL/min (90-130); Glucose 98 mg/dL (65-115); NT Pro B Type Natriuretic Pept 733 pg/mL (0-125); Osmolality Calculated 289 mOsm/kg (285-295); Sodium 140 mmol/L (136-145); Total Bilirubin 0.3 mg/dL (0.15-1.2); Total Protein 7.1 g/dL (6.6-8.7)
[2022-06-29 06:59] LABS: Anion Gap 15.2 (5-19); Aspartate Amino Transferase 26 U/L (0-32); Potassium 4.2 mmol/L (3.5-5.1)
--- NOTE | 2022-06-29 08:55 | P.HP_ITS ---
Providers/Chief Complaint Admitting Physician: Trevor Daniels MD Primary Care Provider: Jd Boothe Chief Complaint: Afib History of Present Illness Sanam Smith is a 71 year old female presenting to the emergency department with palpitations. She states this started early in the morning, and seem to get better after coming to the emergency department and getting a dose of Cardizem. She denies any significant shortness of breath, chest discomfort, recent illness, fever currently. She states she has a long history of paroxysmal atrial fibrillation, and her propafenone was recently discontinued on as she was being switched to amiodarone for a Holter monitor that showed some nonsustained ventricular tachycardia. She took her first dose of amiodarone yesterday. While in the emergency department she got a dose of Cardizem, and heart rate promptly became under control. The emergency department physician gave the patient's home amiodarone, and metoprolol. Discharge was contemplated but patient had a short run of nonsustained ventricular tachycardia so observation was asked for after discussing with cardiology. I discussed with cardiology as well, and the plan currently is to place on an amiodarone drip, for load, continue her low-dose metoprolol and observe her on telemetry at least until tomorrow. She refuses anticoagulation but will take aspirin which she has been taking at home. Review of Systems General: Reports: 10 or more systems reviewed and unremarkable except in HPI and below Const: Denies: fever(s) or chills Eyes: Denies: change in vision ENMT: Denies: throat pain Card: Reports: palpitations Resp: Denies: dyspnea GI: Reports: heartburn (Uses as needed Pepcid); Denies: abdominal pain : Denies: flank pain Musc: Denies: neck pain Skin/Breast: Denies: rash Neuro: Denies: headache(s) Psych: Reports: anxiety; Denies: depression Endo: Denies: polyuria Christian/Lymph: Denies: easy bruising All/Imm: Denies: urticaria Medications/Allergies Home Medications Medication Instructions Recorded Confirmed Last Taken Type ascorbic acid 1,000 1 ea PO DAILY 04/27/22 06/29/22 Unknown History qe-rfavsrpstxeq-aeptuzit powder effervescent pack (Emergen-C) cholecalciferol (vitamin D3) 25 25 mcg PO DAILY PRN UNKNOWN 04/27/22 06/29/22 Unknown History mcg (1,000 unit) tablet (Vitamin D3) elderberry fruit 200 mg capsule 200 mg PO DAILY PRN UNKNOWN 04/27/22 06/29/22 Unknown History garlic 1 tab PO DAILY PRN UNKNOWN 04/27/22 06/29/22 Unknown History oxazepam 15 mg capsule 15 mg PO DAILY PRN Anxiety 04/27/22 06/29/22 06/29/22 05:30 History zinc 50 mg tablet 50 mg PO DAILY PRN UNKNOWN 04/27/22 06/29/22 Unknown History metoprolol tartrate 25 mg tablet 25 mg PO BID #60 tabs 05/11/22 06/29/22 06/28/22 08:00 Rx amiodarone 200 mg tablet 200 mg PO DAILY #90 tabs 06/23/22 06/29/22 06/28/22 08:00 Rx Allergies Allergy/AdvReac Type Severity Reaction Status Date / Time loratadine [From Claritin] Allergy Unknown Verified 06/29/22 06:07 pseudoephedrine Allergy ADR-Numbnes Verified 06/29/22 06:07 [From Sudafed] s ALL ALLERGY MEDS Allergy Unknown Uncoded 06/29/22 06:07 PFSH Acute PFSH: Medical History (Updated 06/29/22 @ 09:21 by Trevor Daniels MD) Anxiety Atrial fibrillation with RVR No pertinent past medical history Tachycardia-bradycardia syndrome Surgical History (Updated 06/29/22 @ 09:18 by Trevor Daniels MD) History of cone biopsy of cervix No pertinent past surgical history Family History (Updated 06/29/22 @ 09:18 by Trevor Daniels MD) Other CAD (coronary artery disease) Social History (Updated 06/29/22 @ 09:19 by Trevor Daniels MD) Smoking and tobacco status: former smoker Alcohol intake: never Vitals/I&O/Wt Last Vital Signs Temp 97.2 F L 06/29/22 05:48 Pulse 76 06/29/22 07:47 Resp 18 06/29/22 07:47 BP 103/67 06/29/22 07:47 Pulse Ox 96 06/29/22 07:47 O2 Del Method 06/29/22 07:47 Weight last 48 hrs Weight 104.326 kg Physical Exam Narrative: General exam is a white female, in no distress currently. Heart rate is 76, and on telemetry it appears she is in atrial fibrillation. HEENT: Atraumatic and normocephalic. Pupils equally round. Oropharynx clear. Neck is supple no lymphadenopathy thyromegaly Cardiovascular irregular, irregular without murmur Lungs clear no wheezing or crackles Abdomen is soft nontender positive bowel sounds. Obese. No obvious organomegaly exams deferred Extremities no cyanosis clubbing or edema, cap refill brisk Skin no rash Neuro no obvious focal deficits. Data : 06/29/22 05:54 06/29/22 06:15 Other Labs: Echocardiogram April 2022 demonstrated an EF of 65%, 2/4 diastolic dysfunction, moderate pulmonary hypertension, increased left atrial size. LFTs are normal Recent TSH normal BNP 733 Magnesium level normal Potassium level 4.2 Chest x-ray no infiltrate Initial EKG demonstrates atrial fibrillation with rapid ventricular rate, normal axis, nonspecific ST-T wave changes. Repeat EKG demonstrates atrial fibrillation, controlled rate, normal axis. No significant concerning ST or T wave changes are noted. A&P Assessment and plan (1) Atrial fibrillation with rapid ventricular response: Patient presented with atrial fibrillation with rapid ventricular rate. She was being transition from propafenone to amiodarone secondary to Holter monitor with nonsustained ventricular tachycardia. She had a brief episode of nonsustained ventricular tachycardia in the emergency department. As she had only had 1 dose of amiodarone, load was not adequate currently. I discussed briefly with cardiology. At this time we will give 150 mg of amiodarone, and then place on amiodarone drip to load her. Continue metoprolol 12.5 mg twice daily which she was instructed to do by cardiology clinic, monitoring heart rate closely on telemetry Magnesium, TSH, potassium of all been recently checked and normal. Cardiology consultation No need for echo, 1 was done already this year. She refuses anticoagulation. Is amenable to aspirin. Continue aspirin and 325 mg daily. She has been taking this at home. As she has a history of reflux, will place her on Pepcid twice daily. (2) Nonsustained ventricular tachycardia: See above (3) Anxiety: Continue home medicine of oxazepam as needed Plan Full code Lovenox for DVT prophylaxis Attestations Medical Necessity Statement*: Will need less than 2 midnight stay for evaluation and treatment of atrial fibrillation with rapid ventricular rate. Coding Level of Care Code Acute Sports Physiotherapist for g Fwd Diagnoses Atrial fibrillation with rapid ventricular response I48.91 Nonsustained ventricular tachycardia I47.29 Anxiety F41.9
[2022-06-29 08:59] LABS: Magnesium 1.9 mg/dL (1.7-2.3)
--- NOTE | 2022-06-29 09:19 | P.CONIM_ITS ---
Providers/Reason For Consult Consulting Physician/Specialty*: TYRONE Gonzales MD/cardiology Reason for Consult*: Atrial fibrillation/ventricular tachycardia/bradycardia Requesting Physician: Dr. Daniels Attending Physician: Dr.Kendell Daniels Primary Care Provider: Jd Boothe History of Present Illness History of Present Illness Sanam Smith is a 71 year old female with a history of intermittent symptomatic atrial fibrillation, was recently discharged in the hospital and she was admitted with atrial fibrillation rapid ventricular rate. She apparently developed severe bradycardia with the beta-josephine. For that reason, she was kept on a small dose of beta-josephine and propafenone. She was discharged home on this medication with an event monitor. The event monitor revealed episodes of ventricular tachycardia. For that reason, the propafenone was discontinued. She was advised to start taking amiodarone. She got the first dose of amiodarone today. Apparently this morning, the patient woke up with the palpitation and discomfort in the chest. According the patient, she gets a funny feeling in the chest with palpitation. For that reason, she came to the emergency room. She was started on IV Cardizem in the emergency room. Her heart rate dropped below 100. She had an episode of wide-complex tachycardia on the monitor. She is admitted to hospital for further evaluation management. Patient denies any significant chest pain. She had a cardiac catheterization several years ago in [place]. She was told to have no significant blockages in the coronary arteries. She had a very sporadic episodes of atrial fibrillation for a long time. But lately, she been having episodes more frequently. She was started on propafenone in April of this year. She never had a syncopal episode. With the episodes of tachycardia, she was having some dizziness. No other specific complaints. No fever, chills or cough. Review of Systems Narrative: CONSTITUTIONAL: No fever or chills. [] EYES: No blurring of vision or other visual disturbances lately. ENT: No hoarseness of voice, auditory disturbances or sore throat. CARDIOVASCULAR: As mentioned above. RESPIRATORY: No significant cough. GASTROINTESTINAL: No hematemesis or melena. GENITOURINARY: No dysuria or hematuria. INTEGUMENTARY: No skin rashes or history of skin cancer. NEURO: No transient ischemic attacks or amaurosis. PSYCHIATRIC: No history of psychosis or major depression. HEMATOLOGIC: No bleeding disorders or significant anemia. ENDOCRINE: No history of polyuria or polydipsia. MUSCULOSKELETAL: No recent joint pain or swelling. ALLERGY/IMMUNOLOGY: As mentioned above. Medications/Allergies Home Medications Medication Instructions Recorded Confirmed Last Taken Type ascorbic acid 1,000 1 ea PO DAILY 04/27/22 06/29/22 Unknown History tp-wsbgtxcpfhqg-swbqpifv powder effervescent pack (Emergen-C) cholecalciferol (vitamin D3) 25 25 mcg PO DAILY PRN UNKNOWN 04/27/22 06/29/22 Unknown History mcg (1,000 unit) tablet (Vitamin D3) elderberry fruit 200 mg capsule 200 mg PO DAILY PRN UNKNOWN 04/27/22 06/29/22 Unknown History garlic 1 tab PO DAILY PRN UNKNOWN 04/27/22 06/29/22 Unknown History oxazepam 15 mg capsule 15 mg PO DAILY PRN Anxiety 04/27/22 06/29/22 06/29/22 05:30 History zinc 50 mg tablet 50 mg PO DAILY PRN UNKNOWN 04/27/22 06/29/22 Unknown History metoprolol tartrate 25 mg tablet 25 mg PO BID #60 tabs 05/11/22 06/29/22 06/28/22 08:00 Rx amiodarone 200 mg tablet 200 mg PO DAILY #90 tabs 06/23/22 06/29/22 06/28/22 08: 00 Rx Allergies Allergy/AdvReac Type Severity Reaction Status Date / Time loratadine [From Claritin] Allergy Unknown Verified 06/29/22 06:07 pseudoephedrine Allergy ADR-Numbnes Verified 06/29/22 06:07 [From Sudafed] s ALL ALLERGY MEDS Allergy Unknown Uncoded 06/29/22 06:07 PFSH Acute PFSH: Medical History Anxiety Atrial fibrillation with RVR No pertinent past medical history Tachycardia-bradycardia syndrome Surgical History History of cone biopsy of cervix No pertinent past surgical history Family History Other CAD (coronary artery disease) Social History Smoking and tobacco status: former smoker Alcohol intake: never Vitals/I&O/Wt Last Vital Signs Temp 97.2 F L 06/29/22 05:48 Pulse 76 06/29/22 07:47 Resp 18 06/29/22 07:47 BP 103/67 06/29/22 07:47 Pulse Ox 96 06/29/22 07:47 O2 Del Method 06/29/22 07:47 Weight last 48 hrs Weight 230 lb Physical Exam Narrative: GENERAL: The patient is alert and oriented times three. Not in any acute distress. Moderately obese HEENT: No significant pallor, icterus or lymphadenopathy.Oral cavity: There are no mucous membrane lesions. NECK: Trachea appears to be central. No masses noted. No JVD or thyromegaly appreciated. RESPIRATORY: Chest is symmetrical. No intercostals muscle retraction or any ac cessory muscle activation. There is no chest wall tenderness. Breath sounds are heard bilaterally. No rales or rhonchi heard. No evidence of any consolidation. BREASTS: Deferred. HEART: The heart sounds are normal. No S3 or S4. No significant murmurs. No pericardial rub ABDOMEN: No vessel pulsations or distention. No tenderness. No organomegaly appreciated. Bowel sounds are normally heard. : Deferred. RECTAL: Deferred. LYMPHATIC: No lymphadenopathy noted in the neck. EXTREMITIES: No edema or cyanosis. No clubbing. MUSCULOSKELETAL: No acute joint deformities or swelling SKIN: There are no significant rashes or ecchymosis NEUROPSYCHIATRIC: The patient is alert and oriented x3. Appears to be in a good mood. No tremors or rigidity noted. Data : 06/30/22 02:23 06/30/22 02:23 Echo: My impression: Echocardiogram done in April 2022 Normal left ventricular size, systolic function and wall ?thickness, with no regional wall motion abnormalities. Left ?ventricular ejection fraction is estimated at 65 %. Grade II/IV ?diastolic dysfunction, moderately elevated filling pressures. ?Normal right ventricular size and systolic function. Mild ?pulmonary hypertension, RVSP 38.9 mmHg. ?Moderately increased left atrial size. ?Structurally normal mitral valve. No mitral valve stenosis. Mild ?mitral valve regurgitation. ?Normal right ventricular size and systolic function. Mild ?pulmonary hypertension, RVSP 38.9 mmHg. EKG 1: My Interpretation: Fibrillation with a ventricular rate of 72 bpm. There is a 1.9-second pause. No acute ST-T changes. EKG computer-generated impression: Chest X-Ray 06/29/22 06:06 IMPRESSION: No acute chest abnormality. A&P Assessment and plan (1) Atrial fibrillation with rapid ventricular response: Patient has symptomatic intermittent atrial fibrillation. We may go ahead and start her on IV amiodarone total of 1 g over 24 hours. Then we may switch her to p.o. amiodarone. (2) Ventricular tachycardia: Patient had an episode of wide-complex tachycardia/ventricular fibrillation on the monitor. On close examination, it appears to be an artifact. However she had a ventricular tachycardia on the event monitor. At this point, it would be appropriate to treat with amiodarone. (3) History of bradycardia: Patient has underlying sinus node dysfunction. She may require permanent pacemaker implantation sometime down the line. She needs to be closely monitored on telemetry. Plan Patient may continue on the small dose of beta-josephine at this time. Based on the clinical response, further recommendations will be made. Thank for the opportunity to evaluate this patient make these recommendations Consult Attestations Medical Necessity Statement: Patient requires continued hospital stay for close monitoring and further management Coding Level of Care Code Acute Oracle Application Architect for Chg Fwd History Expanded Problem Focused Exam Expanded Problem Focused Medical Decision Making Moderate Complexity Diagnoses Atrial fibrillation with rapid ventricular response I48.91 Ventricular tachycardia I47.20 History of bradycardia Z87.898
[2022-06-29] MEDS: aspirin 325 mg EC Tablet PO (14:19)
[2022-06-29] MEDS: famotidine 20 mg Tablet PO (14:19)
[2022-06-29] MEDS: enoxaparin 40 mg/0.4 mL Syringe SUBCUT (14:20)
[2022-06-29] MEDS: metoprolol tartrate 25 mg Tablet 12.5 MG PO (20:19)
[2022-06-30] VITALS (9 sets, daily range): BP systolic 94–139; BP diastolic 55–97; PULSE 66–139; RESP 18–24; TEMP 36.2–36.8; O2SAT 93–98
[2022-06-30 03:01] LABS: Basophils # 0.1 10^3/uL (0.0-0.1); Basophils % 0.7 %; Eosinophils # 0.3 10^3/uL (0.0-0.8); Eosinophils % 3.8 %; Lymphocytes # 2.3 10^3/uL (0.8-4.8); Lymphocytes % 32.8 %; Mean Corpuscular HGB Conc 30.4 g/dL (30.0-36.0); Mean Corpuscular Hemoglobin 26.5 pg (28.0-34.0); Mean Platelet Volume 10.3 fL (7.4-10.4); Monocytes # 0.7 10^3/uL (0.2-0.9); Monocytes % 10.3 %; Neutrophils % 52.3 %; Nucleated Red Blood Cells % 0 %; Platelet Count 245 10^3/cmm (130-400); Red Blood Count 5.29 10^6/uL (4.1-5.3); Red Cell Distribution Width 14.7 % (12.1-15.1); White Blood Count 7.1 10^3/uL (4.0-10.0)
[2022-06-30 03:21] LABS: Anion Gap 13.2 (5-19); Blood Urea Nitrogen 14 mg/dL (8-23); Calcium 8.8 mg/dL (8.5-10.5); Carbon Dioxide 29 mmol/L (22-29); Chloride 102 mmol/L (98-107); Glomerular Filtration Rate 62.1 mL/min (90-130); Glucose 100 mg/dL (65-115); Magnesium 1.9 mg/dL (1.7-2.3); Osmolality Calculated 291 mOsm/kg (285-295); Potassium 4.2 mmol/L (3.5-5.1); Sodium 140 mmol/L (136-145)
[2022-06-30] MEDS: famotidine 20 mg Tablet PO ×2 (08:34→18:46)
[2022-06-30] MEDS: metoprolol tartrate 25 mg Tablet 12.5 MG PO ×3 (08:35→19:54)
[2022-06-30] MEDS: aspirin 325 mg EC Tablet PO (08:35)
--- NOTE | 2022-06-30 08:51 | PM.PN ---
Subjective Subjective: The patient continues to be in atrial fibrillation with intermittent rapid ventricular rate. She is complaining of having the fluttery feeling in the chest and was unable to sleep. No dizziness or syncopal episode. The blood pressure seems to be staying in the normal range. Medications: Medication Review Details: Current Medications Acetaminophen (Acetaminophen 325 Mg Tablet) 650 mg PO Q6H PRN PRN Reason: Mild/Mod Pain Or Temp >/= 101 Aspirin (Aspirin 325 Mg Ec Tablet) 325 mg PO DAILY [facility] Last Admin: 06/30/22 08:35 Dose: 325 mg Enoxaparin Sodium (Enoxaparin 40 Mg/0.4 Ml Syringe) 40 mg SUBCUT Q24H [facility] Last Admin: 06/29/22 14:20 Dose: 40 mg Famotidine (Famotidine 20 Mg Tablet) 20 mg PO BID [facility] Last Admin: 06/30/22 08:34 Dose: 20 mg Amiodarone HCl 900 mg/Dextrose/ IV Miscellaneous Supplies 518 mls @ 17.267 mls/hr IV CONT [facility] Last Admin: 06/29/22 09:54 Dose: 0.5 mg/min, 17.27 mls/hr Metoprolol Tartrate (Metoprolol Tartrate 25 Mg Tablet) 12.5 mg PO BID@0900,2100 [facility] Last Admin: 06/30/22 08:35 Dose: 12.5 mg Non-Formulary Medication (Oxazepam) 15 mg PO DAILY PRN PRN Reason: Anxiety Ondansetron HCl (Ondansetron 2 Mg/Ml Sdv 2 Ml) 4 mg IVP Q6H PRN PRN Reason: vomiting, or N/V if npo Vitals/I&O/Wt Last Vital Signs Temp 98.2 F 06/30/22 07:50 Pulse 79 06/30/22 07:50 Resp 20 H 06/30/22 07:50 BP 127/77 06/30/22 07:50 Pulse Ox 96 06/30/22 07:50 O2 Del Method 06/30/22 07:50 06/29/22 06/30/22 06/30/22 22:59 06:59 14:59 Intake Total 480 / 583 Balance 480 / 583 Weight last 48 hrs Weight 230 lb Weight 230 lb Physical Exam Narrative: GENERAL: The patient is alert and oriented times three. Not in any acute distress. Moderately obese HEENT: No significant pallor, icterus or lymphadenopathy.Oral cavity: There are no mucous membrane lesions. NECK: Trachea appears to be central. No masses noted. No JVD or thyromegaly appreciated. RESPIRATORY: Chest is symmetrical. No intercostals muscle retraction or any accessory muscle activation. There is no chest wall tenderness. Breath sounds are heard bilaterally. No rales or rhonchi heard. No evidence of any consolidation. BREASTS: Deferred. HEART: The heart sounds are variable.. No S3 or S4. Short systolic murmur at the left sternal border. No diastolic murmurs. No pericardial rub ABDOMEN: No vessel pulsations or distention. No tenderness. No organomegaly appreciated. Bowel sounds are normally heard. : Deferred. RECTAL: Deferred. LYMPHATIC: No lymphadenopathy noted in the neck. EXTREMITIES: No edema or cyanosis. No clubbing. MUSCULOSKELETAL: No acute joint deformities or swelling SKIN: There are no significant rashes or ecchymosis NEUROPSYCHIATRIC: The patient is alert and oriented x3. Appears to be in a good mood. No tremors or rigidity noted. Data : 06/30/22 02:23 06/30/22 02: Other Labs: Laboratory Last Values WBC 7.1 10^3/uL (4.0-10.0) 06/30/22 02: RBC 5.29 10^6/uL (4.1-5.3) 06/30/22 02: Hgb 14.0 g/dL (11.5-15.3) 06/30/22 02: Hct 46.0 % (37.0-47.0) 06/30/22 02: MCV 87.0 fl (81-99) 06/30/22 02: MCH 26.5 pg (28.0-34.0) L 06/30/22 02: MCHC 30.4 g/dL (30.0-36.0) 06/30/22: RDW 14.7 % (12.1-15.1) 06/30/22 02: Plt Count 245 10^3/cmm (130-400) 06/30/22 02: MPV 10.3 fL (7.4-10.4) 06/30/22: Neut % (Auto) 52.3 % 06/30/22 02:23 Lymph % (Auto) 32.8 % 06/30/22 02:23 [place] % (Auto) 10.3 % 06/30/22 02:23 Eos % (Auto) 3.8 % 06/30/22 02:23 Baso % (Auto) 0.7 % 06/30/22 02:23 Neut # (Auto) 3.70 10^3/uL (1.8-7.7) 06/30/22 02:23 Lymph # (Auto) 2.3 10^3/uL (0.8-4.8) 06/30/22 02:23 [place] # (Auto) 0.7 10^3/uL (0.2-0.9) 06/30/22 02:23 Eos # (Auto) 0.3 10^3/uL (0.0-0.8) 06/30/22 02:23 Baso # (Auto) 0.1 10^3/uL (0.0-0.1) 06/30/22 02:23 Nucleated RBC % (auto) 0 % 06/30/22 02: Nucleated RBCs # 0.0 /100WBC 06/30/22 02:23 Sodium 140 mmol/L (136-145) 06/30/22 02: Potassium 4.2 mmol/L (3.5-5.1) 06/30/22 02: Chloride 102 mmol/L (98-107) 06/30/22 02:23 Carbon Dioxide 29 mmol/L (22-29) 06/30/22 02: Anion Gap 13.2 (5-19) 06/30/22 02:23 BUN 14 mg/dL (8-23) 06/30/22 02:23 Creatinine 0.9 mg/dL (0.5-0.9) 06/30/22 02:23 GFR Calculation 62.1 mL/min (90-130) L 06/30/22 02:23 Glucose 100 mg/dL (65-115) 06/30/22 02:23 Calculated Osmolality 291 mOsm/kg (285-295) 06/30/22 02:23 Calcium 8.8 mg/dL (8.5-10.5) 06/30/22 02:23 Magnesium 1.9 mg/dL (1.7-2.3) 06/30/22 02:23 Total Bilirubin 0.3 mg/dL (0.15-1.2) 06/29/22 06:15 AST 26 U/L (0-32) 06/29/22 06:15 ALT 17 U/L (0-33) 06/29/22 06:15 Alkaline Phosphatase 56 U/L (35-105) 06/29/22 06:15 NT-Pro-B Natriuret Pep 733 pg/mL (0-125) H 06/29/22 06:15 Total Protein 7.1 g/dL (6.6-8.7) 06/29/22 06:15 Albumin 3.7 g/dL (3.5-5.2) 06/29/22 06:15 Globulin 3.4 g/dL (1.3-4.6) 06/29/22 06:15 A&P Assessment and plan (1) Atrial fibrillation with rapid ventricular response: We will continue on the IV amiodarone and will start the p.o. once the current infusion is completed. If she continues to be in symptomatic atrial fibrillation, consider electrical cardioversion tomorrow. We will keep her n.p.o. after midnight today (2) Ventricular tachycardia: Patient had an episode of wide-complex tachycardia/ventricular fibrillation on the monitor. On close examination, it appears to be an artifact. However she had a ventricular tachycardia on the event monitor. At this point, it would be appropriate to treat with amiodarone. (3) History of bradycardia: Patient has underlying sinus node dysfunction. She may require permanent pacemaker implantation sometime down the line. She needs to be closely monitored on telemetry. Plan Patient may continue on the small dose of beta-josephine at this time. Based on the clinical response, further recommendations will be made. Thank for the opportunity to evaluate this patient make these recommendations Attestations Medical Necessity Statement*: Patient requires continued hospital stay for close monitoring and further management Coding Level of Care Code Acute Pairer Substandard for Chg Fwd History Expanded Problem Focused Exam Expanded Problem Focused Medical Decision Making Moderate Complexity Diagnoses Atrial fibrillation with rapid ventricular response I48.91 Ventricular tachycardia I47.20 History of bradycardia Z87.898
--- NOTE | 2022-06-30 09:59 | P.PN_ITS ---
Subjective Subjective: Reports palpitations this morning. Telemetry reveals A. fib with last night and this morning. No chest discomfort. Medications: Reviewed: Yes Vitals/I&O/Wt Last Vital Signs Temp 98.2 F 06/30/22 07:50 Pulse 79 06/30/22 07:50 Resp 20 H 06/30/22 07:50 BP 127/77 06/30/22 07:50 Pulse Ox 96 06/30/22 07:50 O2 Del Method 06/30/22 07:50 06/29/22 06/30/22 06/30/22 22:59 06:59 14:59 Intake Total 480 / 583 Balance 480 / 583 Weight last 48 hrs Weight 104.326 kg Weight 104.326 kg Physical Exam Narrative: General exam is a white female, in no distress currently. Neck is supple no lymphadenopathy thyromegaly Cardiovascular irregular, irregular with accelerated rate without murmur Lungs clear no wheezing or crackles Abdomen is soft nontender positive bowel sounds. Obese. No obvious organom egaly Extremities no cyanosis clubbing or edema, cap refill brisk Skin no rash Data : 06/30/22 02:23 06/30/22 02:23 A&P Assessment and plan (1) Atrial fibrillation with rapid ventricular response: Patient presented with atrial fibrillation with rapid ventricular rate. She was being transition from propafenone to amiodarone secondary to Holter monitor with nonsustained ventricular tachycardia. She had a brief episode of nonsustained ventricular tachycardia in the emergency department. As she had only had 1 dose of amiodarone, load was not adequate currently. I discussed briefly with cardiology yesterday. Load with IV amiodarone is currently underway. She is still having significant episodes of atrial fibril lation with rapid ventricular rate. Continue metoprolol 12.5 mg twice daily which she was instructed to do by cardiology clinic, monitoring heart rate closely on telemetry Appreciate cardiology consultation No need for echo, 1 was done already this year. She refuses anticoagulation. Is amenable to aspirin. Continue aspirin and 325 mg daily. She has been taking this at home. As she has a history of reflux, will place her on Pepcid twice daily. I have visited with her again 06/30 and she is willing to take anticoagulation at least short-term for weeks or months should this be needed following cardioversion. Reduce aspirin to 81 mg. Change Lovenox to 100 every 12 hours. (2) Nonsustained ventricular tachycardia: See above Amiodarone being initiated (3) Anxiety: Continue home medicine of oxazepam as needed Plan Full code Lovenox for DVT prophylaxis Attestations Medical Necessity Statement*: Needs continued hospital stay for medicine adjustments, possible cardioversion for atrial fibrillation with rapid ventricular rate with some concerns for bradycardia tachycardia syndrome Coding Level of Care Code Acute Restaurant Line Server for [facility] Diagnoses Atrial fibrillation with rapid ventricular response I48.91 Nonsustained ventricular tachycardia I47.29 Anxiety F41.9
[2022-06-30] MEDS: enoxaparin 100 mg/mL Syringe SUBCUT ×2 (10:39→19:54)
[2022-06-30] MEDS: sennosides-docusate Tablet 2 TAB PO (14:10)
--- NOTE | 2022-06-30 16:01 | PC.NURSE ---
spoke with Provider about patient contniued High hr through out the shift instrutions recived to give metoprolol 12.5mg PO now
[2022-06-30] MEDS: bisacodyl 10 mg Supp PR (19:54)
--- NOTE | 2022-06-30 21:59 | PC.NURSE ---
Addendum entered by Jessica Arredondo RN 06/30/22 22:02: strip placed in chart Original Note: Patient converted from Afib with RVR to NSR at 2138 this night. Patient reports feeling well. Informed Dr Riley. No orders received.
[2022-07-01] VITALS: BP 99/64; PULSE 68; RESP 20; TEMP 36.4; O2SAT 92
[2022-07-01 04:00] VITALS: BP 111/69; PULSE 74; RESP 24; TEMP 36.6; O2SAT 93
[2022-07-01 04:39] LABS: Basophils # 0.1 10^3/uL (0.0-0.1); Basophils % 0.7 %; Eosinophils # 0.2 10^3/uL (0.0-0.8); Eosinophils % 3.3 %; Hematocrit 44.9 % (37.0-47.0); Hemoglobin 13.8 g/dL (11.5-15.3); Lymphocytes # 1.9 10^3/uL (0.8-4.8); Lymphocytes % 28.2 %; Mean Corpuscular HGB Conc 30.7 g/dL (30.0-36.0); Mean Corpuscular Hemoglobin 26.5 pg (28.0-34.0); Mean Corpuscular Volume 86.3 fl (81-99); Mean Platelet Volume 10.2 fL (7.4-10.4); Monocytes # 0.7 10^3/uL (0.2-0.9); Monocytes % 10.3 %; Neutrophils # 3.94 10^3/uL (1.8-7.7); Neutrophils % 57.2 %; Nucleated Red Blood Cells % 0 %; Platelet Count 228 10^3/cmm (130-400); Red Cell Distribution Width 14.9 % (12.1-15.1); White Blood Count 6.9 10^3/uL (4.0-10.0)
[2022-07-01 05:06] LABS: Alanine Aminotransferase 13 U/L (0-33); Albumin Level 3.5 g/dL (3.5-5.2); Alkaline Phosphatase 50 U/L (35-105); Anion Gap 11.4 (5-19); Aspartate Amino Transferase 18 U/L (0-32); Blood Urea Nitrogen 13 mg/dL (8-23); Carbon Dioxide 29 mmol/L (22-29); Chloride 103 mmol/L (98-107); Globulin 2.9 g/dL (1.3-4.6); Glomerular Filtration Rate 62.1 mL/min (90-130); Glucose 105 mg/dL (65-115); Osmolality Calculated 288 mOsm/kg (285-295); Potassium 4.4 mmol/L (3.5-5.1); Sodium 139 mmol/L (136-145); Total Bilirubin 0.5 mg/dL (0.15-1.2); Total Protein 6.4 g/dL (6.6-8.7)
[2022-07-01 06:37] VITALS: PULSE 55
[2022-07-01 07:50] VITALS: BP 109/71; PULSE 59; RESP 17; O2SAT 95
[2022-07-01] MEDS: aspirin 81 mg EC Tablet PO (08:18)
[2022-07-01] MEDS: amiodarone 200 mg Tablet 400 MG PO (08:18)
[2022-07-01] MEDS: famotidine 20 mg Tablet PO (08:18)
[2022-07-01] MEDS: metoprolol tartrate 25 mg Tablet 12.5 MG PO (08:19)
--- NOTE | 2022-07-01 08:19 | PM.PN ---
Subjective Subjective: The patient's rhythm spontaneously converted to sinus last night. Her heart rate is in the 60s. The blood pressure is 109/71 this morning. No fever or chills. Feeling much better. Medications: Medication Review Details: Current Medications Acetaminophen (Acetaminophen 325 Mg Tablet) 650 mg PO Q6H PRN PRN Reason: Mild/Mod Pain Or Temp >/= 101 Amiodarone HCl (Amiodarone 200 Mg Tablet) 400 mg PO DAILY [facility] Last Admin: 07/01/22 08:18 Dose: 400 mg Aspirin (Aspirin 81 Mg Ec Tablet) 81 mg PO DAILY [facility] Last Admin: 07/01/22 08:18 Dose: 81 mg Enoxaparin Sodium (Enoxaparin 100 Mg/Ml Syringe) 100 mg 1 mg/kg (100 mg) SUBCUT Q12H [facility] Last Admin: 06/30/22 19:54 Dose: 100 mg Famotidine (Famotidine 20 Mg Tablet) 20 mg PO BID [facility] Last Admin: 07/01/22 08:18 Dose: 20 mg Metoprolol Tartrate (Metoprolol Tartrate 25 Mg Tablet) 12.5 mg PO BID@0900,2100 [facility] Last Admin: 07/01/22 08:19 Dose: 12.5 mg Non-Formulary Medication (Oxazepam) 15 mg PO DAILY PRN PRN Reason: Anxiety Last Admin: 06/30/22 09:26 Dose: 15 mg Ondansetron HCl (Ondansetron 2 Mg/Ml Sdv 2 Ml) 4 mg IVP Q6H PRN PRN Reason: vomiting, or N/V if npo Vitals/I&O/Wt Last Vital Signs Temp 97.8 F 07/01/22 04:00 Pulse 59 L 07/01/22 07:50 Resp 17 07/01/22 07:50 BP 109/71 07/01/22 07:50 Pulse Ox 95 07/01/22 07:50 O2 Del Method 07/01/22 07:50 06/30/22 07/01/22 07/01/22 22:59 06:59 14:59 Intake Total 1180.748 / 1900.748 Balance 1180.748 / 1900.748 Weight last 48 hrs Weight 230 lb Physical Exam Narrative: GENERAL: The patient is alert and oriented times three. Not in any acute distress. HEENT: No significant pallor, icterus or lymphadenopathy.Oral cavity: There are no mucous membrane lesions. NECK: Trachea appears to be central. No masses noted. No JVD or thyromegaly appreciated. RESPIRATORY: Chest is symmetrical. No intercostals muscle retraction or any accessory muscle activation. There is no chest wall tenderness. Breath sounds are heard bilaterally. No rales or rhonchi heard. No evidence of any consolidation. BREASTS: Deferred. HEART: The heart sounds are normal. No S3 or S4. No significant murmurs. No pericardial rub ABDOMEN: No vessel pulsations or distention. No tenderness. No organomegaly appreciated. Bowel sounds are normally heard. : Deferred. RECTAL: Deferred. LYMPHATIC: No lymphadenopathy noted in the neck. EXTREMITIES: No edema or cyanosis. No clubbing. MUSCULOSKELETAL: No acute joint deformities or swelling SKIN: There are no significant rashes or ecchymosis NEUROPSYCHIATRIC: The patient is alert and oriented x3. Appears to be in a good mood. No tremors or rigidity noted. Data : 07/01/22 04:18 07/01/22 04:18 Other Labs: Laboratory Last Values WBC 6.9 10^3/uL (4.0-10.0) 07/01/22 04:18 RBC 5.20 10^6/uL (4.1-5.3) 07/01/22 04:18 Hgb 13.8 g/dL (11.5-15.3) 07/01/22 04:18 Hct 44.9 % (37.0-47.0) 07/01/22 04:18 MCV 86.3 fl (81-99) 07/01/22 04:18 MCH 26.5 pg (28.0-34.0) L 07/01/22 04:18 MCHC 30.7 g/dL (30.0-36.0) 07/01/22 04:18 RDW 14.9 % (12.1-15.1) 07/01/22 04:18 Plt Count 228 10^3/cmm (130-400) 07/01/22 04:18 MPV 10.2 fL (7.4-10.4) 07/01/22 04:18 Neut % (Auto) 57.2 % 07/01/22 04:18 Lymph % (Auto) 28.2 % 07/01/22 04:18 [place] % (Auto) 10.3 % 07/01/22 04:18 Eos % (Auto) 3.3 % 07/01/22 04:18 Baso % (Auto) 0.7 % 07/01/22 04:18 Neut # (Auto) 3.94 10^3/uL (1.8-7.7) 07/01/22 04:18 Lymph # (Auto) 1.9 10^3/uL (0.8-4.8) 07/01/22 04:18 [place] # (Auto) 0.7 10^3/uL (0.2-0.9) 07/01/22 04:18 Eos # (Auto) 0.2 10^3/uL (0.0-0.8) 07/01/22 04:18 Baso # (Auto) 0.1 10^3/uL (0.0-0.1) 07/01/22 04:18 Nucleated RBC % (auto) 0 % 07/01/22 04:18 Nucleated RBCs # 0.0 /100WBC 07/01/22 04:18 Sodium 139 mmol/L (136-145) 07/01/22 04:18 Potassium 4.4 mmol/L (3.5-5.1) 07/01/22 04:18 Chloride 103 mmol/L (98-107) 07/01/22 04:18 Carbon Dioxide 29 mmol/L (22-29) 07/01/22 04:18 Anion Gap 11.4 (5-19) 07/01/22 04:18 BUN 13 mg/dL (8-23) 07/01/22 04:18 Creatinine 0.9 mg/dL (0.5-0.9) 07/01/22 04:18 GFR Calculation 62.1 mL/min (90-130) L 07/01/22 04:18 Glucose 105 mg/dL (65-115) 07/01/22 04:18 Calculated Osmolality 288 mOsm/kg (285-295) 07/01/22 04:18 Calcium 9.0 mg/dL (8.5-10.5) 07/01/22 04:18 Magnesium 1.9 mg/dL (1.7-2.3) 06/30/22 02:23 Total Bilirubin 0.5 mg/dL (0.15-1.2) 07/01/22 04:18 AST 18 U/L (0-32) 07/01/22 04:18 ALT 13 U/L (0-33) 07/01/22 04:18 Alkaline Phosphatase 50 U/L (35-105) 07/01/22 04:18 NT-Pro-B Natriuret Pep 733 pg/mL (0-125) H 06/29/22 06:15 Total Protein 6.4 g/dL (6.6-8.7) L 07/01/22 04:18 Albumin 3.5 g/dL (3.5-5.2) 07/01/22 04:18 Globulin 2.9 g/dL (1.3-4.6) 07/01/22 04:18 A&P Assessment and plan (1) Atrial fibrillation with rapid ventricular response: Patient is in sinus rhythm now. Will start on p.o. amiodarone 400 mg daily. EKG this morning. Advised the patient to ambulate on telemetry. (2) Ventricular tachycardia: We will start amiodarone 400 mg daily for 10 days followed by 200 mg daily (3) History of bradycardia: No significant bradycardia so far. May gradually take her off the beta-josephine as outpatient. Plan EKG today. Encourage ambulation. Possible discharge home this afternoon. Will be seen back in the clinic in a week. Based on the clinical progress, further management decisions will be made. Also will consider EP consult for RF ablation in the future. Attestations Medical Necessity Statement*: Possible discharge home this afternoon Coding Level of Care Code Acute Linux System Admin for Chg Fwd History Expanded Problem Focused Exam Expanded Problem Focused Medical Decision Making Moderate Complexity Diagnoses Atrial fibrillation with rapid ventricular response I48.91 Ventricular tachycardia I47.20 History of bradycardia Z87.898
--- NOTE | 2022-07-01 10:14 | ECG_ITS ---
[facility] Test Date: 2022-07-01 Pat Name: Sanam Smith Department: Room: 275 Gender: Female Time Clerk: : 1950 Requested By: Bentley Gonzales Order Number: [id number] Lewis MD: Saumya Riley M.D. Measurements Intervals [place] Rate: 63 P: 69 TN: 129 QRS: 23 QRSD: 100 T: -12 QT: 427 QTc: 438 Interpretive Statements SINUS RHYTHM LOW QRS VOLTAGE IN PRECORDIAL LEADS [QRS DEFLECTION < 1.0 mV IN CHEST LEADS] POSSIBLE RIGHT VENTRICULAR CONDUCTION DELAY [RSR (QR) IN V1/V2] NONSPECIFIC T-WAVE ABNORMALITY Compared to ECG 06/29/2022 06:10:24 T-wave abnormality now present Atrial fibrillation no longer present Electronically Signed On 07-01-2022 12:52:54 CDT by Saumya Riley M.D. [id number]
--- NOTE | 2022-07-01 11:04 | PC.CHAP ---
Pastoral Care Encounter/Spiritual Assessment Type of Contact [] Declined electrical transmission engineer visit [] Patient/Family/Request visit [] Outpatient visit [] Follow-up visit [] Physician referral [] Code/Alert [x] Routine visit [] Staff referral [] Actively dying [] Patient sleeping [] Family support [] [] Out of room [] Palliative care [] [x] Receiving care in room [] Pre-surgical visit [] Trauma [x] Long length of stay [] ICU visit [] Other: Relational/Emotional Strength [x] Patient feels connected with others/family/visitors/staff [] Distress [] Loneliness/isolation [] Abandonment Spirituality of Patient [x] Person of Jenniffer [] Attends Latter Day of their Jenniffer [x] Believes in Prayer [] Reads Bible or Moravian materials [] There are Spiritual issues to be addressed Regulatory Affairs Assistant Interventions [x] Prayer [x] Active listening [x] Non-anxious presence [x] Spiritual/emotional support [] Crisis/trauma care [x] Spiritual counseling [] Bereavement support [] Provided bereavement packet [] Provided Bible/devotional materials [] Provided toy/stuffed animal, coloring book to patient or family member [] Provided Communion [] Anointing/[place] [] Salvation [x] Completed spiritual assessment [] Other: Impact on Illness or Injury [] Angry [] Fearful [x] Anxious [] Often cries [] Exhaustion [x] Unable to work [] Unable to attend orthodoxy [] Unable to walk/stand [] Unable to read [] Unable to drive [] Unable to eat/drink [] Unable to sleep [] Unable to be with family [] Patient intubated [] Other: Summary +1 seniorn heart A Feb family taking care of him waiting on doctor report well go home at some point Time spent with patient 10 mins
[2022-07-01] MEDS: enoxaparin 100 mg/mL Syringe SUBCUT (11:27)
[2022-07-01 11:44] VITALS: BP 114/72; PULSE 60; RESP 16; TEMP 36.8; O2SAT 96
--- NOTE | 2022-07-01 13:02 | PM.DCS ---
Discharge Providers Date of Admission: 06/30/22 14:52 Date of Discharge: July 01, 2022 Attending Provider at Admission: Trevor Daniels MD Attending Provider at Discharge: Trevor Daniels MD Primary Care Provider: Jd Boothe Diagnoses at Discharge Discharge Diagnosis (1) Atrial fibrillation with rapid ventricular response: Status: Acute (2) Ventricular tachycardia: Status: Acute (3) History of bradycardia: Status: Acute Reason for Visit Reason for Visit: Afib Hospital Course Hospital Course Patient presented to the emergency department with palpitations. She was found to be in atrial fibrillation with rapid ventricular rate. After a dose of diltiazem IV, rate came down nicely. She had recently been transitioning from propafenone to amiodarone secondary to an event monitor that demonstrated some nonsustained ventricular tachycardia on propafenone. She only had 1 dose of amiodarone. Secondary to this, and recurrence of atrial fibrillation with rapid ventricular rate shortly after admission she was placed on an amiodarone drip. Low-dose metoprolol was continued. Cardiology was consulted, and full dose anticoagulation initiated. Patient did not want anticoagulation initially but she agreed to it after risks and benefits were discussed. With amiodarone, she eventually converted to sinus rhythm. Heart rate was controlled, blood pressure stable, and patient without symptoms so she was discharged home on July 01. I discussed with her the risks and benefits of outpatient anticoagulation with Raiza. She had been on this before but at the 5 mg dose twice daily had significant bruising. She agreed to try the 2.5 mg dose twice daily, in addition to low-dose aspirin as an outpatient. She will follow-up with cardiology in the next 10 days. Amiodarone 400 mg a day for 10 days, at discharge, prior to going back to 200 mg a day. She is to call with any concerns, bleeding, etc. as document in the discharge plan. I discussed the plan with her and her hospital course and she agreed to the current treatment plan. was present. Physical Exam Narrative: General exam no distress Neck is supple no lymphadenopathy thyromegaly Cardiovascular regular rate and rhythm without murmur Lungs clear no wheezing or crackles Abdomen is soft, positive bowel sounds Extremities no cyanosis clubbing or edema Skin no rash Discharge Data Studies Completed and Pending Completed Studies During Hospitalization Category Date Time Status XR chest 1V portable [id number] Stat Exams 06/29/22 06:06 Completed Radiology Impressions Chest X-Ray 06/29/22 06:06 IMPRESSION: No acute chest abnormality. Laboratory Results WBC 6.9 10^3/uL (4.0-10.0) 07/01/22 04:18 RBC 5.20 10^6/uL (4.1-5.3) 07/01/22 04:18 Hgb 13.8 g/dL (11.5-15.3) 07/01/22 04:18 Hct 44.9 % (37.0-47.0) 07/01/22 04:18 MCV 86.3 fl (81-99) 07/01/22 04:18 MCH 26.5 pg (28.0-34.0) L 07/01/22 04:18 MCHC 30.7 g/dL (30.0-36.0) 07/01/22 04:18 RDW 14.9 % (12.1-15.1) 07/01/22 04:18 Plt Count 228 10^3/cmm (130-400) 07/01/22 04:18 MPV 10.2 fL (7.4-10.4) 07/01/22 04:18 Neut % (Auto) 57.2 % 07/01/22 04:18 Lymph % (Auto) 28.2 % 07/01/22 04:18 [place] % (Auto) 10.3 % 07/01/22 04:18 Eos % (Auto) 3.3 % 07/01/22 04:18 Baso % (Auto) 0.7 % 07/01/22 04:18 Neut # (Auto) 3.94 10^3/uL (1.8-7.7) 07/01/22 04:18 Lymph # (Auto) 1.9 10^3/uL (0.8-4.8) 07/01/22 04:18 [place] # (Auto) 0.7 10^3/uL (0.2-0.9) 07/01/22 04:18 Eos # (Auto) 0.2 10^3/uL (0.0-0.8) 07/01/22 04:18 Baso # (Auto) 0.1 10^3/uL (0.0-0.1) 07/01/22 04:18 Nucleated RBC % (auto) 0 % 07/01/22 04:18 Nucleated RBCs # 0.0 /100WBC 07/01/22 04:18 Sodium 139 mmol/L (136-145) 07/01/22 04:18 Potassium 4.4 mmol/L (3.5-5.1) 07/01/22 04:18 Chloride 103 mmol/L (98-107) 07/01/22 04:18 Carbon Dioxide 29 mmol/L (22-29) 07/01/22 04:18 Anion Gap 11.4 (5-19) 07/01/22 04:18 BUN 13 mg/dL (8-23) 07/01/22 04:18 Creatinine 0.9 mg/dL (0.5-0.9) 07/01/22 04:18 GFR Calculation 62.1 mL/min (90-130) L 07/01/22 04:18 Glucose 105 mg/dL (65-115) 07/01/22 04:18 Calculated Osmolality 288 mOsm/kg (285-295) 07/01/22 04:18 Calcium 9.0 mg/dL (8.5-10.5) 07/01/22 04:18 Magnesium 1.9 mg/dL (1.7-2.3) 06/30/22 02:23 Total Bilirubin 0.5 mg/dL (0.15-1.2) 07/01/22 04:18 AST 18 U/L (0-32) 07/01/22 04:18 ALT 13 U/L (0-33) 07/01/22 04:18 Alkaline Phosphatase 50 U/L (35-105) 07/01/22 04:18 NT-Pro-B Natriuret Pep 733 pg/mL (0-125) H 06/29/22 06:15 Total Protein 6.4 g/dL (6.6-8.7) L 07/01/22 04:18 Albumin 3.5 g/dL (3.5-5.2) 07/01/22 04:18 Globulin 2.9 g/dL (1.3-4.6) 07/01/22 04:18 Vitals Last Vital Signs Temp 98.2 F 07/01/22 11:44 Pulse 60 07/01/22 11:44 Resp 16 07/01/22 11:44 BP 114/72 10/06/22 11:44 Pulse Ox 96 07/01/22 11:44 O2 Del Method 07/01/22 11:44 Discharge Plan Discharge Patient Disposition: Home Condition: Stable Prescriptions: New famotidine 20 mg Tablet 20 mg PO BID Qty: 60 0RF metoprolol tartrate 25 mg Tablet 12.5 mg PO BID@0900,2100 Qty: 30 0RF Eliquis 2.5 mg tablet 2.5 mg PO BID Qty: 60 0RF aspirin 81 mg Tablet,Delayed Release (Dr/Ec) 81 mg PO DAILY Qty: 30 0RF Continued amiodarone 200 mg tablet 200 mg PO DAILY Qty: 90 1RF oxazepam 15 mg capsule 15 mg PO DAILY PRN (Reason: Anxiety) zinc 50 mg Tablet 50 mg PO DAILY PRN (Reason: UNKNOWN) garlic Tablet 1 tab PO DAILY PRN (Reason: UNKNOWN) elderberry fruit 200 mg Capsule 200 mg PO DAILY PRN (Reason: UNKNOWN) cholecalciferol (vitamin D3) [Vitamin D3] 25 mcg (1,000 unit) Tablet 25 mcg PO DAILY PRN (Reason: UNKNOWN) Emergen-C 1,000 mg Powder Effervescent In Packet 1 ea PO DAILY Discontinued metoprolol tartrate 25 mg tablet 25 mg PO BID Qty: 60 2RF Discharge Orders: Discharge Order (Routine); Ordered 07/01/22 Ordered By: Trevor Daniels Referrals: Jd Boothe [Primary Care Provider] - Discharge Diet: Regular Discharge Activity: Increase activity as tolerated Patient Instructions: Opioid Safety Activity Restrictions/Additional Instructions: Amiodarone 400 mg daily for 10 days, followed by 200 mg p.o. daily Appointment [facility] next week, to be seen by the nurse practitioner. Appointment with me in 1 month Take all medicine as prescribed Follow-up as directed If you have any blood in your stool, black or tarry stools, frequent nosebleeds contact cardiology regarding your anticoagulant. Patient's Health Concerns: Atrial fibrillation Assessment: Converted to sinus rhythm Plan of Treatment: Amiodarone, instructions as above Discharge Attestations Time Spent in Discharge Care*: greater than 30 min Quality Metrics Clinical Quality Measures [ No reported AMI, CVA or VTE this stay] Coding Level of Care Code Acute Chg FW DC note Diagnoses Atrial fibrillation with rapid ventricular response I48.91 Ventricular tachycardia I47.20 History of bradycardia Z87.898
[2022-07-01 15:10] VITALS: BP 114/72; PULSE 60; RESP 16; TEMP 36.8; O2SAT 96
--- NOTE | 2022-07-01 15:16 | PC.NURSE ---
Discharge Note Patient discharged to home via private vehicle accompanied by spouse. Discharge instructions reviewed with patient and/or sales and service representative. Mobile pharmacy medications and/or prescriptions provided. Belongings/home medications returned.
== END 2022-07-01 15:11 | disposition home or self-care (01) | DRG 310 ==
LOC: ER 08:46 → ER IP 16:24 → MEDSURG 21:44
PROVIDERS: Admitting Provider Internal Medicine; Emergency Provider Family Medicine; PCP Family Medicine; Visit Provider Internal Medicine
DX: I48.91 Unspecified atrial fibrillation (principal); I47.20 Ventricular tachycardia, unspecified; F41.9 Anxiety disorder, unspecified; Z87.891 Personal history of nicotine dependence; I49.5 Sick sinus syndrome
CPT/HCPCS: 36415; 71045; 80048; 80053; 83735; 83880; 85025; 93005; 96365; 96366; 96372; 96375; 99291; G0378; J0282; J1650; J3490; J7060

== ENCOUNTER → 2022-07-08 09:44 | Outpatient (BNVA) | payer MEDICARE, OTHER, SELFPAY | PROVIDERS: PCP Family Medicine; Visit Provider Nurse Practitioner Family | DX: I48.91 Unspecified atrial fibrillation (principal) | CPT/HCPCS: 93005; 99213 ==

== ENCOUNTER → 2022-07-16 09:34 | Outpatient (BNVA) | payer MEDICARE, OTHER, SELFPAY | PROVIDERS: PCP Family Medicine; Visit Provider Nurse Practitioner Family | DX: I48.91 Unspecified atrial fibrillation (principal); Z79.01 Long term (current) use of anticoagulants | CPT/HCPCS: 99213 ==

== ENCOUNTER → 2022-10-07 13:25 | Outpatient (BNVA) | payer MEDICARE, OTHER, SELFPAY | PROVIDERS: PCP Family Medicine; Visit Provider Internal Medicine Cardiovascular Disease | DX: I48.91 Unspecified atrial fibrillation (principal); I47.29 Other ventricular tachycardia; Z79.899 Other long term (current) drug therapy; E78.5 Hyperlipidemia, unspecified; R00.1 Bradycardia, unspecified; Z87.891 Personal history of nicotine dependence | CPT/HCPCS: 99214 ==

== ENCOUNTER 2022-10-12 11:58 | Outpatient (CLI) | payer MEDICARE, OTHER, SELFPAY ==
[2022-10-12 13:04] LABS: Alanine Aminotransferase 15 U/L (0-33); Alkaline Phosphatase 53 U/L (35-105); Aspartate Amino Transferase 21 U/L (0-32); Globulin 3.1 g/dL (1.3-4.6); Thyroid Stimulating Hormone 2.75 uIU/mL (0.27-4.20); Total Bilirubin 0.3 mg/dL (0.15-1.2); Total Protein 7.1 g/dL (6.6-8.7)
== END 2022-10-12 11:59 | disposition home or self-care (01) ==
LOC: LAB 12:03
PROVIDERS: PCP Family Medicine; Visit Provider Internal Medicine Cardiovascular Disease
DX: E78.5 Hyperlipidemia, unspecified (principal); Z79.899 Other long term (current) drug therapy; N18.9 Chronic kidney disease, unspecified
CPT/HCPCS: 36415; 80076; 84443

== ENCOUNTER → 2023-04-21 13:54 | Outpatient (BNVA) | payer MEDICARE, OTHER, SELFPAY | PROVIDERS: PCP Family Medicine; Visit Provider Internal Medicine Cardiovascular Disease | DX: I48.91 Unspecified atrial fibrillation (principal); Z79.899 Other long term (current) drug therapy; Z87.898 Personal history of other specified conditions; I47.29 Other ventricular tachycardia; I10 Essential (primary) hypertension; Z87.891 Personal history of nicotine dependence | CPT/HCPCS: 99214 ==

== ENCOUNTER 2023-08-02 00:36 | Emergency (ER) | payer MEDICARE, OTHER, SELFPAY ==
[2023-08-02 00:40] VITALS: BP 169/115; PULSE 140; RESP 18; TEMP 36.7; O2SAT 96; BMI 39.3
--- NOTE | 2023-08-02 00:53 | XRR_ITS ---
PROCEDURE INFORMATION: Exam: XR Chest Exam date and time: 08/02/2023 1:30 AM Age: 72 years old Clinical indication: Other: Palpitations; Patient HX: HX of uterine cancer years ago. Nonsmoker; Additional info: Tachycardia TECHNIQUE: Imaging protocol: Radiologic exam of the chest. Views: 1 view. COMPARISON: CR XR chest 1V portable [id number] 06/29/2022 6:22 AM FINDINGS: Lungs: Unremarkable. No consolidation. Pleural spaces: Unremarkable. No pleural effusion. No pneumothorax. Heart/Mediastinum: Unremarkable. No cardiomegaly. Advanced diffuse vascular calcification noted. Bones/joints: Unremarkable. XR/XR chest 1V portable [id number] IMPRESSION: No acute findings.
--- NOTE | 2023-08-02 00:53 | ECG_ITS ---
[facility] Test Date: 2023-08-02 Pat Name: Sanam Smith Department: Room: Gender: Female [employer]: : 1950 Requested By: Julio C Garcia Order Number: [id number] Joshua MD: German Mendez M.D. Measurements Intervals [place] Rate: 137 P: 0 NC: 0 QRS: 31 QRSD: 103 T: -32 QT: 272 QTc: 411 Interpretive Statements ATRIAL FIBRILLATION WITH RAPID VENTRICULAR RESPONSE POSSIBLE RIGHT VENTRICULAR CONDUCTION DELAY [RSR (QR) IN V1/V2] ST DEVIATION AND MODERATE T-WAVE ABNORMALITY, CONSIDER LATERAL ISCHEMIA [-0.1+ mV T-WAVE IN I/aVL/V5/V6] Compared to ECG 07/01/2022 10:14:25 Possible ischemia now present Sinus rhythm no longer present T-wave abnormality still present Electronically Signed On 08-02-2023 8:51:29 STAFF INTERPRETER by German Mendez M.D. [id number] f
--- NOTE | 2023-08-02 00:54 | ED_ITS ---
HPI - Arrhythmia/Palpitations General: Chief Complaint: Arrhythmia/Palpitations Stated Complaint: Heart Rate High Time Seen by Provider: 08/02/23 00:46 History of Present Illness: Patient presents to the ER with complaints of heart racing and skipping beats. Patient does have a history of atrial fibrillation. Patient takes amiodarone and Eliquis. Patient's also complaints of anxiety worse today that her anxiety medicine just would not touch. Patient states her hearts been racing for about the last 2 hours. Patient denies any chest pain or shortness of breath at this time. Review of Systems General: Reports: 10 or more systems reviewed and unremarkable except in HPI and below PFSH ED PFSH: Medical History Anxiety Atrial fibrillation with RVR No pertinent past medical history Tachycardia-bradycardia syndrome Surgical History History of cone biopsy of cervix No pertinent past surgical history Family History Sister Cancer Father Diabetes Stroke Other CAD (coronary artery disease) Denies family history of Clotting disorder Dementia Hyperlipidemia Psychiatric illness Chronic kidney disease (CKD) Suicide Anesthesia complication Bleeding disorder Family history of premature coronary artery disease Lung disease Hypertension Social History Smoking and tobacco/nicotine status: former use of tobacco/nicotine Alcohol intake: never Substance/Drug Use: never Physical Exam Const: COMMON NORMALS: no acute distress, average body habitus, patient oriented x3, no limitations, healthy appearing, alert and well nourished HENMT: COMMON NORMALS: normocephalic, atraumatic, hearing grossly normal bilaterally, external ears normal, Normal external nose present, moist oral mucous membranes and oropharynx normal HEAD & SCALP: normocephalic and atraumatic NOSE: Normal external nose present EXTERNAL EAR: Yes external ears normal Neck/C-Spine: COMMON NORMALS: no JVD Chest: COMMONS NORMALS: normal inspection of the chest and normal palpation of entire chest wall Resp: COMMON NORMALS: normal respiratory effort, No retractions, No use of accessory muscles and clear to auscultation bilaterally AUSCULTATION: clear to auscultation bilaterally Cardio: COMMON NORMALS: no JVD; negative for regular rate and negative for regular rhythm ( Tachycardic irregularly irregular rhythm) RATE: abnormal rate RHYTHM: abnormal rhythm ( Tachycardic irregularly irregular rhythm) GI: COMMON NORMALS: Normal to inspection, nondistended, normoactive bowel sounds present, Soft to palpation, non-tender, No hepatosplenomegaly present and no masses PALPATION: Yes Soft to palpation and Yes No hepatosplenomegaly present : COMMON NORMALS: Yes no CVA tenderness BLADDER/KIDNEY EXAM: Yes no CVA tenderness Back/Pelvis: COMMON NORMALS: no CVA tenderness Neuro: COMMON NORMALS: patient oriented x3 SENSORIUM/ORIENTATION: Yes alert Course Vital Signs: Vital signs: Vital Signs Temperature 98.1 F 08/02/23 00:40 Pulse Rate 91 08/02/23 01:13 Respiratory Rate 18 08/02/23 01:13 Blood Pressure 153/99 08/02/23 01:13 Pulse Oximetry 96 08/02/23 01:13 Oxygen Delivery Me thod Room Air 08/02/23 01:13 MDM - Arrhythmia/Palpitations Medical Decision Making patient presents to the ER with a heart rate of about 140 beats a minute in A- fib with RVR. Patient was given 20 mg of Cardizem and her heart rate slowed down to approximately 100 beats a minute. Patient states she felt much better when this happened. Lab work was obtained which was essentially benign. Patient be discharged home to follow-up with her family practice and/or interior assemblies installer. Differential Diagnosis Likely palpitations, artial fibrillation and artial flutter; Unlikely anxiety, sinus tachycardia, ventricular premature beats, supraventricular tachycardia, ventricular tachycardia or WPW Medical Records I reviewed the patient's medical records. Lab Data I reviewed the patient's lab results. 08/02/23 00:52 08/02/23 00:52 Laboratory Results WBC 8.71 10^3/uL (3.29-11.43) 08/02/23 00:52 RBC 5.38 10^6/uL (3.85-5.65) 08/02/23 00:52 Hgb 14.80 g/dL (11.27-16.99) 08/02/23 00:52 Hct 47.4 % (36-47) H 08/02/23 00:52 MCV 88.1 fl (85-98) 08/02/23 00:52 MCH 27.5 pg (27-33) 08/02/23 00:52 MCHC 31.2 g/dL (30-55) 08/02/23 00:52 RDW 14.3 % (12.1-15.1) 08/02/23 00:52 Plt Count 275 10^3/cmm (157-399) 08/02/23 00:52 MPV 10.0 fL (7.4-10.4) 08/02/23 00:52 Neut % (Auto) 59.0 % 08/02/23 00:52 Lymph % (Auto) 28.9 % 08/02/23 00:52 [place] % (Auto) 8.6 % 08/02/23 00:52 Eos % (Auto) 2.2 % 08/02/23 00:52 Baso % (Auto) 0.8 % 08/02/23 00:52 Neut # (Auto) 5.14 10^3/uL (1.8-7.7) 08/02/23 00:52 Lymph # (Auto) 2.5 10^3/uL (0.8-4.8) 08/02/23 00:52 [place] # (Auto) 0.8 10^3/uL (0.2-0.9) 08/02/23 00:52 Eos # (Auto) 0.2 10^3/uL (0.0-0.8) 08/02/23 00:52 Baso # (Auto) 0.1 10^3/uL (0.0-0.1) 08/02/23 00:52 Nucleated RBC % (auto) 0 % 08/02/23 00:52 Nucleated RBCs # 0.0 /100WBC 08/02/23 00:52 Sodium 141 mmol/L (136-145) 08/02/23 00:52 Potassium 3.8 mmol/L (3.5-5.1) 08/02/23 00:52 Chloride 102 mmol/L (98-107) 08/02/23 00:52 Carbon Dioxide 28 mmol/L (22-29) 08/02/23 00:52 Anion Gap 14.8 (5-19) 08/02/23 00:52 BUN 15 mg/dL (8-23) 08/02/23 00:52 Creatinine 1.0 mg/dL (0.5-0.9) H 08/02/23 00:52 GFR Calculation 54.8 mL/min (90-130) L 08/02/23 00:52 Glucose 105 mg/dL (65-115) 08/02/23 00:52 Calculated Osmolality 293 mOsm/kg (285-295) 08/02/23 00:52 Calcium 9.4 mg/dL (8.5-10.5) 08/02/23 00:52 Total Bilirubin 0.2 mg/dL (0.15-1.2) 08/02/23 00:52 AST 26 U/L (0-32) 08/02/23 00:52 ALT 22 U/L (0-33) 08/02/23 00:52 Alkaline Phosphatase 66 U/L (35-105) 08/02/23 00:52 Troponin T Baseline 9 ng/L (0-10) 08/02/23 00:52 Total Protein 7.7 g/dL (6.6-8.7) 08/02/23 00:52 Albumin 4.2 g/dL (3.5-5.2) 08/02/23 00:52 Globulin 3.5 g/dL (1.3-4.6) 08/02/23 00:52 All radiology interpretation(s) finalized by discharge EKG Data EKG 1: I personally reviewed and interpreted this EKG as follows: EKG interpretation date: 08/02/23 EKG interpretation time: 00:47 Prior EKG tracings: not available for review Interpretation: EKG shows ventricular rate 137 bpm, QRS duration 103, QTc of 352, A-fib with RVR, possible right ventricular conduction delay, ST deviation and moderate T wave abnormality Discharge Plan Discharge Patient Disposition: Home Clinical Impression: Atrial fibrillation with rapid ventricular response Condition: Stable Prescriptions: No Action amiodarone 200 mg tablet 200 mg PO DAILY Qty: 90 3RF Eliquis 2.5 mg tablet See Rx Instructions .ROUTE .COMPLEX Qty: 180 3RF Dose Instruction: TAKE ONE TABLET BY MOUTH TWICE DAILY Rx Instructions: TAKE ONE TABLET BY MOUTH TWICE DAILY oxazepam 15 mg capsule 15 mg PO DAILY PRN (Reason: Anxiety) zinc 50 mg Tablet 50 mg PO DAILY PRN (Reason: UNKNOWN) garlic Tablet 1 tab PO DAILY PRN (Reason: UNKNOWN) elderberry fruit 200 mg Capsule 200 mg PO DAILY PRN (Reason: UNKNOWN) cholecalciferol (vitamin D3) [Vitamin D3] 25 mcg (1,000 unit) Tablet 25 mcg PO DAILY PRN (Reason: UNKNOWN) Emergen-C 1,000 mg Powder Effervescent In Packet 1 ea PO DAILY famotidine 20 mg Tablet 20 mg PO BID Qty: 60 0RF Discharge Orders: Discharge ED (Routine); Ordered 08/02/23 Ordered By: Julio C Garcia Referrals: Tr Irwin MD [Primary Care Provider] - 1 week Patient Instructions: A-fib (Atrial Fibrillation) (ED) Activity Restrictions/Additional Instructions: please follow-up with your interior assemblies installer and/or family practice physician within the next 7 to 10 days for further evaluation and treatment. You may benefit from a change in your medicine. Coding Level of Care Code ED Facilities Flight Check Pilot for Kenyatta Reddy
[2023-08-02 00:57] LABS: Basophils # 0.1 10^3/uL (0.0-0.1); Basophils % 0.8 %; Eosinophils # 0.2 10^3/uL (0.0-0.8); Eosinophils % 2.2 %; Hematocrit 47.4 % (36-47); Lymphocytes # 2.5 10^3/uL (0.8-4.8); Lymphocytes % 28.9 %; Mean Corpuscular HGB Conc 31.2 g/dL (30-55); Mean Corpuscular Hemoglobin 27.5 pg (27-33); Mean Corpuscular Volume 88.1 fl (85-98); Monocytes # 0.8 10^3/uL (0.2-0.9); Monocytes % 8.6 %; Neutrophils # 5.14 10^3/uL (1.8-7.7); Nucleated Red Blood Cells % 0 %; Platelet Count 275 10^3/cmm (157-399); Red Blood Count 5.38 10^6/uL (3.85-5.65); Red Cell Distribution Width 14.3 % (12.1-15.1); White Blood Count 8.71 10^3/uL (3.29-11.43)
[2023-08-02] MEDS: dilTIAZem 5 mg/mL SDV 5 mL 20 MG IVP (01:08)
[2023-08-02 01:12] LABS: Troponin(5th) Baseline 9 ng/L (0-10)
[2023-08-02 01:13] VITALS: BP 153/99; PULSE 91; RESP 18; O2SAT 96
[2023-08-02 01:17] LABS: Alanine Aminotransferase 22 U/L (0-33); Albumin Level 4.2 g/dL (3.5-5.2); Alkaline Phosphatase 66 U/L (35-105); Aspartate Amino Transferase 26 U/L (0-32); Blood Urea Nitrogen 15 mg/dL (8-23); Calcium 9.4 mg/dL (8.5-10.5); Carbon Dioxide 28 mmol/L (22-29); Chloride 102 mmol/L (98-107); Globulin 3.5 g/dL (1.3-4.6); Glomerular Filtration Rate 54.8 mL/min (90-130); Glucose 105 mg/dL (65-115); Osmolality Calculated 293 mOsm/kg (285-295); Sodium 141 mmol/L (136-145); Total Bilirubin 0.2 mg/dL (0.15-1.2); Total Protein 7.7 g/dL (6.6-8.7)
[2023-08-02 01:26] LABS: Anion Gap 14.8 (5-19); Potassium 3.8 mmol/L (3.5-5.1)
[2023-08-02 02:52] VITALS: BP 120/82; PULSE 93; RESP 17; O2SAT 97
== END 2023-08-02 02:56 | disposition home or self-care (01) ==
PROVIDERS: Emergency Provider Emergency Medicine; PCP Family Medicine
DX: I48.20 Chronic atrial fibrillation, unspecified (principal); Z79.01 Long term (current) use of anticoagulants; Z87.891 Personal history of nicotine dependence
CPT/HCPCS: 71045; 80053; 84484; 85025; 93005; 96374; 99285; J3490

== ENCOUNTER → 2023-08-11 13:12 | Outpatient (BNVA) | payer MEDICARE, OTHER, SELFPAY | PROVIDERS: PCP Family Medicine; Visit Provider Nurse Practitioner Family | DX: I10 Essential (primary) hypertension (principal); I48.91 Unspecified atrial fibrillation; Z87.891 Personal history of nicotine dependence; Z79.01 Long term (current) use of anticoagulants | CPT/HCPCS: 99213 ==

== ENCOUNTER → 2023-11-08 10:34 | Outpatient (BNVA) | payer MEDICARE, OTHER, SELFPAY | PROVIDERS: PCP Family Medicine; Visit Provider Nurse Practitioner Family | DX: I48.91 Unspecified atrial fibrillation (principal); Z79.01 Long term (current) use of anticoagulants; I10 Essential (primary) hypertension; Z87.891 Personal history of nicotine dependence | CPT/HCPCS: 99214 ==

== ENCOUNTER 2023-11-20 02:55 | Emergency (ER) | payer MEDICARE, OTHER, SELFPAY ==
[2023-11-20 03:00] VITALS: BP 136/101; PULSE 112; RESP 23; TEMP 36.6; O2SAT 97; BMI 40.7
--- NOTE | 2023-11-20 03:10 | XRR_ITS ---
PROCEDURE INFORMATION: Exam: XR Chest Exam date and time: 11/20/2023 3:21 AM Age: 72 years old Clinical indication: Patient HX: C/O palpitations. History of afib. TECHNIQUE: Imaging protocol: Radiologic exam of the chest. Views: 1 view. COMPARISON: CR XR chest 1V portable [id number] 08/02/2023 1:30 AM FINDINGS: Lungs: No consolidation. Pleural spaces: No sizable pleural effusion or pneumothorax. Heart/Mediastinum: No cardiomegaly. Bones/joints: Unremarkable. XR/XR chest 1V portable [id number] IMPRESSION: No acute intrathoracic findings.
--- NOTE | 2023-11-20 03:10 | ECG_ITS ---
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 Measurements Intervals [place] Rate: 131 P: 0 OR: 0 QRS: 54 QRSD: 101 T: -78 QT: 297 QTc: 438 Interpretive Statements ATRIAL FIBRILLATION WITH RAPID VENTRICULAR RESPONSE INCOMPLETE RIGHT BUNDLE BRANCH BLOCK [90+ ms QRS DURATION, TERMINAL R IN V1/V2, 40+ ms S IN I/aVL/V4/V5/V6] NONSPECIFIC ST & T-WAVE ABNORMALITY Compared to ECG 08/02/2023 00:47:40 Incomplete right bundle-branch block now present Possible ischemia no longer present T-wave abnormality still present Electronically Signed On 11-20-2023 20:54:56 SPARE PERSON by Bentley Gonzales M.D. [email or web address]/[id number]
[2023-11-20 03:24] LABS: Basophils % 0.6 %; Eosinophils # 0.1 10^3/uL (0.0-0.8); Hematocrit 46.6 % (36-47); Lymphocytes # 2.1 10^3/uL (0.8-4.8); Lymphocytes % 29.5 %; Mean Corpuscular HGB Conc 31.8 g/dL (30-55); Mean Corpuscular Hemoglobin 26.8 pg (27-33); Mean Corpuscular Volume 84.3 fl (85-98); Mean Platelet Volume 9.7 fL (7.4-10.4); Monocytes # 0.6 10^3/uL (0.2-0.9); Monocytes % 8.5 %; Neutrophils % 59.1 %; Nucleated Red Blood Cells % 0 %; Platelet Count 297 10^3/cmm (157-399); Red Blood Count 5.53 10^6/uL (3.85-5.65); Red Cell Distribution Width 14.2 % (12.1-15.1); White Blood Count 6.94 10^3/uL (3.29-11.43)
[2023-11-20 03:37] LABS: INR 0.91 (0.8-1.2)
[2023-11-20 03:54] LABS: Troponin(5th) Baseline 14 ng/L (0-10)
[2023-11-20 04:03] LABS: Alanine Aminotransferase 20 U/L (0-33); Albumin Level 4.1 g/dL (3.5-5.2); Alkaline Phosphatase 67 U/L (35-105); Anion Gap 14.1 (5-19); Aspartate Amino Transferase 23 U/L (0-32); Blood Urea Nitrogen 12 mg/dL (8-23); Calcium 9.1 mg/dL (8.5-10.5); Carbon Dioxide 27 mmol/L (22-29); Chloride 101 mmol/L (98-107); Globulin 3.9 g/dL (1.3-4.6); Glomerular Filtration Rate 54.8 mL/min (90-130); Glucose 101 mg/dL (65-115); Magnesium 2.1 mg/dL (1.7-2.3); NT Pro B Type Natriuretic Pept 3302 pg/mL (0-125); Osmolality Calculated 286 mOsm/kg (285-295); Potassium 4.1 mmol/L (3.5-5.1); Sodium 138 mmol/L (136-145); Thyroid Stimulating Hormone 4.49 uIU/mL (0.27-4.20); Total Bilirubin 0.4 mg/dL (0.15-1.2)
[2023-11-20] MEDS: LORazepam 2 mg/mL INJ 10 mL MDV 0.5 MG IVP (04:14)
[2023-11-20] MEDS: dilTIAZem 5 mg/mL SDV 5 mL 15 MG IVP (04:16)
[2023-11-20 04:17] VITALS: BP 122/84; PULSE 87; RESP 18; O2SAT 96
[2023-11-20] MEDS: metoprolol tartrate 1 mg/1 mL SDV 5 mL 2.5 MG IVP (04:57)
[2023-11-20 05:28] LABS: Troponin 5 2HR 9.05 ng/L (0-10)
[2023-11-20 05:30] LABS: Troponin 5 2HR Delta -4.95 ABS# (0-10)
[2023-11-20 06:30] VITALS: BP 112/72; PULSE 79; RESP 18; O2SAT 95
--- NOTE | 2023-11-20 15:53 | W.ED.ARRPALP ---
HPI - Arrhythmia/Palpitations General: Chief Complaint: Arrhythmia/Palpitations Stated Complaint: afib issues Time Seen by Provider: 11/20/23 03:07 History of Present Illness: This is a 72 year old female with a history of atrial fibrillation. She presents with palpitations, ongoing for the last couple of days. She is on amiodarone in the morning. She takes diltiazem as needed for breakthrough atrial fibrillation. She has taken a couple of doses at home without improvement. She notes that her heart rate has been up in the one 40s at times, and irregular. Her rate is usually regular, and in the 50s and 60s she says. She has some pressure in her chest. No chest pain. Some mild shortness of breath and generalized weakness. No leg swelling Associated symptoms: Deny nausea or vomiting Review of Systems Const: Denies: fever(s) Eyes: Denies: change in vision Card: Reports: chest pain, palpitations and irregular heart rhythm; Denies: edema Resp: Reports: dyspnea; Denies: productive cough, non-productive cough or wheezing GI: Denies: abdominal pain, nausea, vomiting, diarrhea or hematochezia : Denies: difficulty voiding Skin/Breast: Denies: rash Neuro: Denies: headache(s), weakness in extremities, dizziness or confusion PFSH ED PFSH: Medical History Anxiety Tachycardia-bradycardia syndrome Atrial fibrillation with RVR No pertinent past medical history Surgical History History of cone biopsy of cervix No pertinent past surgical history Family History Sister Cancer Father Diabetes Stroke Other CAD (coronary artery disease) Denies family history of Clotting disorder Dementia Hyperlipidemia Psychiatric illness Chronic kidney disease (CKD) Suicide Anesthesia complication Bleeding disorder Family history of premature coronary artery disease Lung disease Hypertension Social History Smoking and tobacco/nicotine status: former use of tobacco/nicotine Alcohol intake: never Substance/Drug Use: never Physical Exam Const: COMMON NORMALS: no acute distress GENERAL APPEARANCE: cooperative; not ill appearing and not frail appearing HENMT: COMMON NORMALS: normocephalic, atraumatic and Normal external nose present HEAD & SCALP: normocephalic and atraumatic FACE & SINUS: normal facial exam and face symmetric NOSE: Normal external nose present Eye: COMMON NORMALS: Equal, round and reactive pupils present and EOMs intact bilaterally PUPIL: Yes Equal, round and reactive pupils present Neck/C-Spine: GENERAL: Yes trachea midline Chest: CHEST: Yes Symmetrical chest wall rise Resp: COMMON NORMALS: normal respiratory effort, No retractions, No use of accessory muscles and clear to auscultation bilaterally AUSCULTATION: clear to auscultation bilaterally Cardio: RATE: tachycardic RHYTHM: abnormal rhythm irregularly irregular GI: COMMON NORMALS: Normal to inspection, nondistended, normoactive bowel sounds present Extremity: COMMON NORMALS: no pedal edema Neuro: JOESPH COMA SCALE: document GCS findings [place] coma scale eye opening: Spontaneous [place] coma scale verbal response: Orientated [place] coma scale motor response: Obey commands [place] coma scale total score: 15 SENSORY EXAM: Yes extremities (intact) Psych: COMMON NORMALS: speech normal SPEECH: Yes normal speech Skin: COMMON NORMALS: no rashes or lesions noted GENERAL SKIN EXAM: no rashes or lesions noted Course Vital Signs: Vital signs: Vital Signs Temperature 97.8 F 11/20/23 03:00 Pulse Rate 79 11/20/23 06:30 Respiratory Rate 18 11/20/23 06:30 Blood Pressure 112/72 11/20/23 06:30 Pulse Oximetry 95 11/20/23 06:30 Oxygen Delivery Me thod Room Air 11/20/23 04:17 MDM - Arrhythmia/Palpitations Medical Decision Making The patient's heart rate has been in the 130s. she is in atrial fibrillation. no acute ST wave changes on EKG. she was initially given diltiazem IV come up with improvement in her heart rate to some degree. it improved to around 100 to 110 period. Following this, digoxin and IV metoprolol were ordered. However, the heart rate seemed to decrease on its own to some degree. Metoprolol was given, with reduction of her heart rate into the 70s. She's still somewhat irregular, but feeling improved. CBC and BMP are not remarkable. Chest X-ray is non acute. Her delta troponin is -5. Her BMP is mildly elevated at 3300. With improvement in her symptoms, and her heart rate, she'll be allowed home. She is encouraged to take her amiodarone when she gets home. Close outpatient follow up with cardiology. Return for worsening symptoms. Lab Data 11/20/23 03:15 11/20/23 03:15 Radiology Impressions Chest X-Ray 11/20/23 03:10 IMPRESSION: No acute intrathoracic findings. Laboratory Results WBC 6.94 10^3/uL (3.29-11.43) 11/20/23 03:15 RBC 5.53 10^6/uL (3.85-5.65) 11/20/23 03:15 Hgb 14.80 g/dL (11.27-16.99) 11/20/23 03:15 Hct 46.6 % (36-47) 11/20/23 03:15 MCV 84.3 fl (85-98) L 11/20/23 03:15 MCH 26.8 pg (27-33) L 11/20/23 03:15 MCHC 31.8 g/dL (30-55) 11/20/23 03:15 RDW 14.2 % (12.1-15.1) 11/20/23 03:15 Plt Count 297 10^3/cmm (157-399) 11/20/23 03:15 MPV 9.7 fL (7.4-10.4) 11/20/23 03:15 Neut % (Auto) 59.1 % 11/20/23 03:15 Lymph % (Auto) 29.5 % 11/20/23 03:15 Cannon % (Auto) 8.5 % 11/20/23 03:15 Eos % (Auto) 2.0 % 11/20/23 03:15 Baso % (Auto) 0.6 % 11/20/23 03:15 Neut # (Auto) 4.10 10^3/uL (1.8-7.7) 11/20/23 03:15 Lymph # (Auto) 2.1 10^3/uL (0.8-4.8) 11/20/23 03:15 Cannon # (Auto) 0.6 10^3/uL (0.2-0.9) 11/20/23 03:15 Eos # (Auto) 0.1 10^3/uL (0.0-0.8) 11/20/23 03:15 Baso # (Auto) 0.0 10^3/uL (0.0-0.1) 11/20/23 03:15 Nucleated RBC % (auto) 0 % 11/20/23 03:15 Nucleated RBCs # 0.0 /100WBC 11/20/23 03:15 PT 12.50 SECONDS (12.1-14.9) 11/20/23 03:15 INR 0.91 (0.8-1.2) 11/20/23 03:15 APTT 31.0 SECONDS (23.9-36.7) 11/20/23 03:15 Sodium 138 mmol/L (136-145) 11/20/23 03:15 Potassium 4.1 mmol/L (3.5-5.1) 11/20/23 03:15 Chloride 101 mmol/L (98-107) 11/20/23 03:15 Carbon Dioxide 27 mmol/L (22-29) 11/20/23 03:15 Anion Gap 14.1 (5-19) 11/20/23 03:15 BUN 12 mg/dL (8-23) 11/20/23 03:15 Creatinine 1.0 mg/dL (0.5-0.9) H 11/20/23 03:15 GFR Calculation 54.8 mL/min (90-130) L 11/20/23 03:15 Glucose 101 mg/dL (65-115) 11/20/23 03:15 Calculated Osmolality 286 mOsm/kg (285-295) 11/20/23 03:15 Calcium 9.1 mg/dL (8.5-10.5) 11/20/23 03:15 Magnesium 2.1 mg/dL (1.7-2.3) 11/20/23 03:15 Total Bilirubin 0.4 mg/dL (0.15-1.2) 11/20/23 03:15 AST 23 U/L (0-32) 11/20/23 03:15 ALT 20 U/L (0-33) 11/20/23 03:15 Alkaline Phosphatase 67 U/L (35-105) 11/20/23 03:15 Troponin T Baseline 14 ng/L (0-10) H 11/20/23 03:15 Troponin T 120 Minute 9.05 ng/L (0-10) 11/20/23 05:06 Delta Troponin T -4.95 ABS# (0-10) L 11/20/23 05:06 NT-Pro-B Natriuret Pep 3302 pg/mL (0-125) H 11/20/23 03:15 Total Protein 8.0 g/dL (6.6-8.7) 11/20/23 03:15 Albumin 4.1 g/dL (3.5-5.2) 11/20/23 03:15 Globulin 3.9 g/dL (1.3-4.6) 11/20/23 03:15 TSH 4.49 uIU/mL (0.27-4.20) H 11/20/23 03:15 All radiology interpretation(s) finalized by discharge Discharge Plan Discharge Patient Disposition: Home Clinical Impression: Atrial fibrillation with rapid ventricular response, Palpitations Condition: Stable Prescriptions: No Action enoxaparin [Lovenox] 100 mg/mL syringe 100 mg SUBCUT BID Qty: 10 0RF Rx Instructions: Take on 08/13, 08/14, 08/15 twice a day. Stop after evening dose 08/15. diltiazem HCl 30 mg tablet 30 mg PO TID PRN (Reason: rapid atrial fibrillation) Qty: 30 0RF Rx Instructions: As needed only for rapid rate Eliquis 2.5 mg tablet See Rx Instructions .ROUTE .COMPLEX Qty: 180 3RF Dose Instruction: TAKE ONE TABLET BY MOUTH TWICE DAILY Rx Instructions: TAKE ONE TABLET BY MOUTH TWICE DAILY amiodarone 200 mg tablet See Rx Instructions .ROUTE .COMPLEX Qty: 90 3RF Dose Instruction: Take 1 tablet by mouth once daily Rx Instructions: Take 1 tablet by mouth once daily oxazepam 15 mg capsule 15 mg PO DAILY PRN (Reason: Anxiety) zinc 50 mg Tablet 50 mg PO DAILY PRN (Reason: UNKNOWN) garlic Tablet 1 tab PO DAILY PRN (Reason: UNKNOWN) elderberry fruit 200 mg Capsule 200 mg PO DAILY PRN (Reason: UNKNOWN) cholecalciferol (vitamin D3) [Vitamin D3] 25 mcg (1,000 unit) Tablet 25 mcg PO DAILY PRN (Reason: UNKNOWN) Emergen-C 1,000 mg Powder Effervescent In Packet 1 ea PO DAILY famotidine 20 mg Tablet 20 mg PO BID Qty: 60 0RF Discharge Orders: Discharge ED (Routine); Ordered 11/20/23 Ordered By: Marcel Rahman Referrals: Tr Irwin MD [Primary Care Provider] - 1-3 days Patient Instructions: A-fib (Atrial Fibrillation) (ED), Chest Pain (ED), Opioid Safety, Pain Management Activity Restrictions/Additional Instructions: Monitor your heart rate closely for the next 48 hours. Return for chest discomfort, worsening shortness of breath, other concerning symptoms. Call your doctor on Tuesday. Coding Level of Care Code ED [employer] Adminstrator for Kenyatta Reddy
== END 2023-11-20 06:22 | disposition home or self-care (01) ==
PROVIDERS: Emergency Provider Emergency Medicine; PCP Family Medicine
DX: I48.20 Chronic atrial fibrillation, unspecified (principal); R00.2 Palpitations; Z79.01 Long term (current) use of anticoagulants; Z87.891 Personal history of nicotine dependence
CPT/HCPCS: 36415; 71045; 80053; 83735; 83880; 84443; 84484; 85025; 85610; 85730; 93005; 96374; 96375; 99285; J2060; J3490

== ENCOUNTER 2024-01-04 12:19 | Outpatient (CLI) | payer MEDICARE, OTHER, SELFPAY ==
--- NOTE | 2024-01-04 12:29 | USCV_ITS ---
Sanam Smith Age: 73 Gender: F : 1950 Exam Date: 01/04/2024 12:43 Ordering Phys: Tr Irwin MD Technologist: Exam Location: [facility] [place] Indication: murmur BP: 130 / 80 HR: 90 Rhythm: Sinus Technical Quality: Adequate MEASUREMENTS (Male / Female) Normal Values 2D ECHO LV Diastolic Diameter PLAX 4.2 cm 4.2 - 5.9 / 3.9 - 5.3 cm IVS Diastolic Thickness 1.5 cm 0.6 - 1.0 / 0.6 - 0.9 cm IVS Systolic Thickness 1.5 cm LVPW Diastolic Thickness 1.5 cm 0.6 - 1.0 / 0.6 - 0.9 cm LVPW Systolic Thickness 1.4 cm LVOT Diameter 2.1 cm LV Ejection Fraction 2D Teich 51.1 % LV Ejection Fraction MOD 2C 62.5 % LV Ejection Fraction 2C AL 62.3 % LA Diameter 4.4 cm RA Systolic Volume 4C AL 42.6 ml RA Systolic Volume 4C MOD 44.7 ml LA Sys Volume AL 73.5 cm cubed Aorta at Sinotubular Diameter 2.7 cm M-MODE LA Ao Ratio MM 1.4 AV Cusp Separation MM 1.9 cm DOPPLER AV Peak Velocity 102.0 cm/s LVOT Peak Velocity 76.0 cm/s AV Area Cont Eq vti 3.1 cm squared AV Area Cont Eq pk 2.5 cm squared TR Peak Velocity 267.0 cm/s TR Peak Gradient 28.5 mmHg TV Peak E Velocity 120.0 cm/s Right Atrial Pressure 3.0 mmHg Pulmonary Artery Systolic Pressu 31.5 mmHg PV Peak Velocity 79.0 cm/s FINDINGS Left Ventricle Left ventricle is normal in size. LV systolic function is normal with EF 55 to 60%. No regional wall motion abnormalities are seen. Right Ventricle Normal size and function. Right Atrium Normal in size Left Atrium Dilated. Mitral Valve Structurally normal mitral valve. Mild mitral regurgitation Aortic Valve Structurally normal aortic valve. No significant stenosis or regurgitation. Tricuspid Valve Mild tricuspid regurgitation. Pulmonary artery systolic function is normal Pulmonic Valve Not well visualized Pericardium Normal Aorta Normal in size IVC Appears to be normal. CONCLUSIONS LV systolic function is normal with EF of 55 to 60%. Left atrial dilation Mild mitral regurgitation Mild tricuspid regurgitation Compared to prior echocardiogram from 2021, no significant changes are seen. German Mendez MD (Electronically Signed) Final Date: 07 January 2024 22:49 S
== END 2024-01-04 12:20 | disposition home or self-care (01) ==
LOC: RAD 12:20
PROVIDERS: PCP Family Medicine; Visit Provider Family Medicine
DX: R01.1 Cardiac murmur, unspecified (principal); I08.1 Rheumatic disorders of both mitral and tricuspid valves
CPT/HCPCS: 93306

== ENCOUNTER → 2024-04-12 13:37 | Outpatient (BNVA) | payer MEDICARE, OTHER, SELFPAY | PROVIDERS: PCP Family Medicine; Visit Provider Internal Medicine Cardiovascular Disease | DX: I48.91 Unspecified atrial fibrillation (principal); Z79.01 Long term (current) use of anticoagulants; I47.29 Other ventricular tachycardia; Z87.898 Personal history of other specified conditions; I10 Essential (primary) hypertension; Z87.891 Personal history of nicotine dependence | CPT/HCPCS: 99213 ==

== ENCOUNTER → 2024-11-02 08:02 | Outpatient (BNVA) | payer MEDICARE, OTHER, SELFPAY | PROVIDERS: PCP Family Medicine; Visit Provider Nurse Practitioner Family | DX: I48.91 Unspecified atrial fibrillation (principal); I47.29 Other ventricular tachycardia; I10 Essential (primary) hypertension; M79.89 Other specified soft tissue disorders; Z87.891 Personal history of nicotine dependence; Z79.01 Long term (current) use of anticoagulants | CPT/HCPCS: 99214 ==

== ENCOUNTER → 2025-05-06 10:12 | Outpatient (BNVA) | payer MEDICARE, OTHER, SELFPAY | PROVIDERS: PCP Family Medicine; Visit Provider Internal Medicine Cardiovascular Disease | DX: I48.20 Chronic atrial fibrillation, unspecified (principal); Z79.01 Long term (current) use of anticoagulants; I47.20 Ventricular tachycardia, unspecified; I10 Essential (primary) hypertension; Z87.898 Personal history of other specified conditions; Z87.891 Personal history of nicotine dependence; R07.9 Chest pain, unspecified; Z98.61 Coronary angioplasty status | CPT/HCPCS: 93005; 99214 ==

== ENCOUNTER 2025-05-14 08:32 | Outpatient (CLI) | payer MEDICARE, OTHER, SELFPAY ==
--- NOTE | 2025-05-14 | ECG_ITS ---
[employer] Test Date: 2025-05-14 Pat Name: Sanam Smith Department: Room: Gender: Female [employer]: : 1950 Requested By: Bentley Gonzales Order Number: [id number] Joshua MD: Bentley Gonzales M.D. Interpretive Statements Lung unchanged pre/post procedure; Intraprocedure shortess of breath; Symptoms resoled by discharge PROCEDURE: At the baseline, the EKG revealed atrial fibrillation with a incomplete right bundle branch block pattern. Diffuse nonspecific ST-T changes.. The baseline heart was 101 bpm with a blood pressue of 137/79 mm of Hg Lexiscan was infused over a period of 20 seconds. A total of 0.4 milligrams of Lexiscan was infused. The stress phase was continued for a total of 5 minutes. Heart rate at the end of the stress phase was 112 bpm with a blood pressure 135/84 mm of Hg. The EKG at the peak infusion revealed no significant changes. Sestamibi was injected 20 seconds after the Lexiscan infusion. Heart rate at the end of the recovery phase was 121 bpm with a blood pressure of 148/80 mm of Hg. CONCLUSION: 1. No significant EKG changes with the LexiScan infusion 2. No LexiScan induced chest pain or cardiac arrhythmia 3. Normal blood pressure and heart rate response 4. Sestamibi/sestamibi perfusion scan pending; see separate report. Electronically Signed On 06-03-2025 07:59:25 CDT by Bentley Gonzales M.D. [email or web address]
[2025-05-14 08:51] VITALS: BMI 43.4
--- NOTE | 2025-05-14 08:53 | NMCV_ITS ---
NM adin perf SPECT r/s* [id number] Sanam Smith Age: 74 Gender: F : 1950 Exam Date: 05/14/2025 09:57 Ordering Phys: Bentley Gonzales MD ([email or web address]) Technologist: KATHY Desai Exam Location: [facility] Indications: cp STRESS TEST Please see separate stress test report in [facility] for full findings IMAGE PROTOCOL Rest/Stress 1 Lexiscan Day Radiopharmaceutical Dose (mCi) Administration Site Administered by Rest: Tc-99m 10.9 IV KATHY Desai Sestamibi Stress:Tc-99m 33 IV KATHY Bailey Sestamibi Rest: 14-May-2025 60 Discovery 630 Stress: 14-May-2025 30 Discovery 630 0.4mg Lexiscan. Images obtained in supine and prone position. SPECT RESULTS Technical Quality: Good Raw Data Analysis: Normal Image Corrections: No attenuation or motion correction applied Summed Stress Score: 0 Summed Rest Score: 0 Summed Difference Score: 0 PERFUSION FINDINGS Medium sized area of fixed perfusion defect noted in mid to distal anterior wall suggestive of old myocardial infarction versus scarring in the absence of prone images could be artifact FUNCTIONAL RESULTS (calculated via Gated SPECT) Stress Image LV EF (%): 69 Stress EDV (mL):67 TID: 1.09 Stress ESV (mL):21 FUNCTIONAL FINDINGS: There is normal left ventricular systolic function. IMPRESSIONS This study is negative for ischemia. In the absence of prone images fixed perfusion defect in the mid anterior wall could be an artifact. Pancho Garcia MD (Electronically Signed) Final Date: 14 May 2025 21:03 S
--- NOTE | 2025-05-14 10:37 | PC.NURSE ---
pt resting hr ranging from 105-120s. pt scheduled for exercise mibi. dr valencia called for further instruction. verbal order to change to chemical stress test. pt educated and agreed to change.
[2025-05-14 10:56] VITALS: BP 148/80; PULSE 113
== END 2025-05-14 08:33 | disposition home or self-care (01) ==
LOC: CDL 08:34
PROVIDERS: PCP Family Medicine; Visit Provider Internal Medicine Cardiovascular Disease
DX: R07.9 Chest pain, unspecified (principal); R06.02 Shortness of breath
CPT/HCPCS: 36415; 78452; 93017; 96374; A9500; J2785